=== PATIENT | male | born 1935 | race Caucasian/White ===

== ENCOUNTER 2018-12-23 02:42 | Inpatient (IN) | payer MEDICARE ==
[~2018-12-23] VITALS: Ht 172.7 cm; Wt 61.3 kg
[2018-12-23] MEDS ORDERED: BISO10TA PO (03:09)
[2018-12-23] MEDS ORDERED: LORA-254 PO (03:09)
[2018-12-23] MEDS ORDERED: PANT40TA5 PO (03:09)
[2018-12-23] MEDS ORDERED: HYDR-2765 PO (03:09)
[2018-12-23] MEDS ORDERED: ASPI-630 PO (03:09)
[2018-12-23] MEDS ORDERED: DIPH25CA3 PO (03:09)
[2018-12-23] MEDS ORDERED: ATOR40TA59 PO (03:09)
[2018-12-23] MEDS ORDERED: LISI30TA4 PO (03:09)
[2018-12-23] MEDS ORDERED: ESCITALOPRAM OX20 MG PO (03:09)
[2018-12-23] MEDS ORDERED: METHYL SALICYLATE/MENTHOL TOPICAL OINTMENT 29GM TUBE. TP PRN (05:30)
[2018-12-23] MEDS ORDERED: MAGNESIUM HYDROXIDE 2,400 MG/30 ML ORAL.SUSP. PO PRN (05:30)
[2018-12-23] MEDS ORDERED: MAG HYDROX/AL HYDROX/SIMETH 30 ML ORAL.SUSP PO PRN (05:30)
[2018-12-23 06:19] VITALS: BP 188/82
[2018-12-23] MEDS: ASPIRIN 81 MG TAB.CHEW PO SCH (07:40)
[2018-12-23] MEDS: ATENOLOL 50 MG TABLET PO SCH (07:41)
[2018-12-23] MEDS: PANTOPRAZOLE 40 MG TABLET. PO SCH (07:41)
[2018-12-23] MEDS: CITALOPRAM 20 MG TABLET. PO SCH (07:41)
[2018-12-23] MEDS ORDERED: LISINOPRIL 10 MG TABLET PO SCH (09:00)
[2018-12-23 09:44] LABS: BASO # 0.1 x10^3/uL (0.0-0.2); BASO % 2 % (0-3); EOS # 0.3 x10^3/uL (0.0-0.7); EOS % 4 % (0-3); HEMATOCRIT 44.6 % (39.0-53.0); LYMPH % 18 % (24-48); MEAN CORPUSCULAR HEMOGLOBIN 33 pg (25-35); MEAN CORPUSCULAR HGB CONC 34 g/dL (31-37); MEAN CORPUSCULAR VOLUME 98 fL (79-100); MONO # 0.7 x10^3/uL (0.0-1.1); MONO % 12 % (0-9); NEUT # 3.7 x10^3uL (1.8-7.7); NEUT % 64 % (31-73); PLATELET COUNT 218 x10^3/uL (140-400); RED BLOOD COUNT 4.57 x10^6/uL (4.30-5.70); RED CELL DISTRIBUTION WIDTH 12.9 % (11.5-14.5); WHITE BLOOD COUNT 5.8 x10^3/uL (4.0-11.0)
[2018-12-23 09:51] LABS: ALBUMIN 3.9 g/dL (3.4-5.0); ALBUMIN/GLOBULIN RATIO 1.3 (1.0-1.7); CALCIUM 9.2 mg/dL (8.5-10.1); CREATININE 0.8 mg/dL (0.7-1.3); MAGNESIUM 2.1 mg/dL (1.8-2.4); POTASSIUM 3.7 mmol/L (3.5-5.1); TOTAL BILIRUBIN 0.8 mg/dL (0.2-1.0)
[2018-12-23 15:51] VITALS: BP 107/64
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
[2018-12-23 19:37] LABS: THYROID STIM HORMONE (TSH) 1.432 uIU/mL (0.358-3.740)
[2018-12-23 20:09] LABS: HEMOGLOBIN A1C 5.3 % (4.8-5.6)
[2018-12-23 20:17] VITALS: BP 173/76
[2018-12-23] MEDS: ATORVASTATIN CALCIUM 20 MG TABLET PO SCH (20:54)
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
[2018-12-23] MEDS ORDERED: HALOPERIDOL PO SCH (21:00)
[2018-12-23] MEDS ORDERED: HALOPERIDOL 2 MG TABLET PO SCH (21:00)
[2018-12-23] MEDS ORDERED: HALOPERIDOL 0.5 MG TABLET PO SCH (21:00)
--- NOTE | 2018-12-23 22:19 | PDOC ---
Exam Note: Michael Note: Please also refer to the separate dictated note~for this date of service dictated separately.~Patient seen individually. Discussed the patient with Nursing staff reviewed the chart.~Reviewed interim history and current functioning. Reviewed vital signs,~Labs/ Radiology~and current medications noted below. Continue current treatment with the changes noted in the dictated addendum note Assessment: Vital Signs: Vital Signs Date Time Temp Pulse Resp B/P (MAP) Pulse Ox O2 Delivery O2 Flow Rate FiO2 12/23/18 20:54 73 173/76 12/23/18 20:17 20 95 12/23/18 15:51 98.6 12/23/18 06:19 Room Air I&O Intake and Output 12/23/18 07:01 Intake Total 0 ml Balance 0 ml Intake Oral 0 ml Labs: Laboratory Tests Test 12/23/18 09:13 White Blood Count 5.8 x10^3/uL (4.0-11.0) Red Blood Count 4.57 x10^6/uL (4.30-5.70) Hemoglobin 15.0 g/dL (13.0-17.5) Hematocrit 44.6 % (39.0-53.0) Mean Corpuscular Volume 98 fL (79-100) Mean Corpuscular Hemoglobin 33 pg (25-35) Mean Corpuscular Hemoglobin Concent 34 g/dL (31-37) Red Cell Distribution Width 12.9 % (11.5-14.5) Platelet Count 218 x10^3/uL (140-400) Neutrophils (%) (Auto) 64 % (31-73) Lymphocytes (%) (Auto) 18 % (24-48) L Monocytes (%) (Auto) 12 % (0-9) H Eosinophils (%) (Auto) 4 % (0-3) H Basophils (%) (Auto) 2 % (0-3) Neutrophils # (Auto) 3.7 x10^3uL (1.8-7.7) Lymphocytes # (Auto) 1.0 x10^3/uL (1.0-4.8) Monocytes # (Auto) 0.7 x10^3/uL (0.0-1.1) Eosinophils # (Auto) 0.3 x10^3/uL (0.0-0.7) Basophils # (Auto) 0.1 x10^3/uL (0.0-0.2) Sodium Level 140 mmol/L (136-145) Potassium Level 3.7 mmol/L (3.5-5.1) Chloride Level 101 mmol/L (98-107) Carbon Dioxide Level 30 mmol/L (21-32) Anion Gap 9 (6-14) Blood Urea Nitrogen 21 mg/dL (8-26) Creatinine 0.8 mg/dL (0.7-1.3) Estimated GFR (Cockcroft-Gault) 93.0 BUN/Creatinine Ratio 26 (6-20) H Glucose Level 123 mg/dL (70-99) H Hemoglobin A1c 5.3 % (4.8-5.6) Calcium Level 9.2 mg/dL (8.5-10.1) Magnesium Level 2.1 mg/dL (1.8-2.4) Iron Level 77 ug/dL (65-175) Total Iron Binding Capacity 276 ug/dL (250-450) Iron Saturation 28 % (15-34) Total Bilirubin 0.8 mg/dL (0.2-1.0) Aspartate Amino Transferase (AST) 50 U/L (15-37) H Alanine Aminotransferase (ALT) 27 U/L (16-63) Alkaline Phosphatase 61 U/L (46-116) Total Protein 7.0 g/dL (6.4-8.2) Albumin 3.9 g/dL (3.4-5.0) Albumin/Globulin Ratio 1.3 (1.0-1.7) Triglycerides Level 133 mg/dL (0-150) Cholesterol Level 143 mg/dL (0-200) LDL Cholesterol, Calculated 77 mg/dL (0-100) VLDL Cholesterol, Calculated 26 mg/dL (0-40) Non-HDL Cholesterol Calculated 103 mg/dL (0-129) HDL Cholesterol 40 mg/dL (40-60) Cholesterol/HDL Ratio 3.0 Thyroid Stimulating Hormone (TSH) 1.432 uIU/mL (0.358-3.740) Current Medications: Meds: Current Medications Acetaminophen (Tylenol) 650 mg PRN Q6HRS PRN PO PAIN / TEMP; Start 12/23/18 at 05:30 Multi-Ingredient Ointment (Analgesic [place]) 1 oralia PRN QID PRN TP MUSCLE PAIN; Start 12/23/18 at 05:30 Al Hydroxide/Mg Hydroxide (Mylanta Plus Xs) 15 ml PRN AFTMEALHC PRN PO DYSPEPSIA; Start 12/23/18 at 05:30 Magnesium Hydroxide (Milk Of Magnesia) 2,400 mg PRN QHS PRN PO CONSTIPATION; Start 12/23/18 at 05:30 Diphenhydramine HCl (Benadryl) 25 mg PRN QHS PRN PO INSOMNIA; Start 12/23/18 at 05:30 Lorazepam (Ativan) 1 mg PRN TID PRN PO ANXIETY / AGITATION; Start 12/23/18 at 05 :30 Citalopram Hydrobromide (CeleXA) 40 mg DAILY PO Last administered on 12/23/18 07:41; Start 12/23/18 at 09:00 Acetaminophen/ Hydrocodone Bitart (Lortab 7.5/325) 1 tab PRN QID PRN PO PAIN; Start 12/23/18 at 05:30 Aspirin (Children'S Aspirin) 81 mg DAILYWBKFT PO Last administered on 12/23/18at 07:40; Start 12/23/18 at 08:00 Atorvastatin Calcium (Lipitor) 40 mg QHS PO Last administered on 12/23/18 20:54 ; Start 12/23/18 at 21:00 Atenolol (Tenormin) 100 mg DAILY PO Last administered on 12/23/18 07:41; Start 12/23/18 at 09:00 Lisinopril (Prinivil) 30 mg DAILY PO Last administered on 12/23/18 07:40; Start 12/23/18 at 09:00; Stop 12/23/18 at 13:46; Status DC Pantoprazole Sodium (Protonix) 40 mg DAILYAC PO Last administered on 12/23/18 07:41; Start 12/23/18 at 07:30 Olanzapine (ZyPREXA ZYDIS) 2.5 mg PRN Q2HR PRN PO PSYCHOSIS Last administered on 12/23/18 06:34; Start 12/23/18 at 05:30 Lisinopril (Prinivil) 40 mg DAILY PO ; Start 12/24/18 at 09:00 Nifedipine (Procardia Xl) 30 mg BID PO Last administered on 12/23/18at 20:54; Start 12/23/18 at 21:00 Haloperidol (Haldol) 2 mg QHS PO ; Start 12/23/18 at 21:00; Stop 12/23/18 at 21:00 ; Status DC Haloperidol (Haldol) 2 mg QHS PO ; Start 12/23/18 at 21:00; Stop 12/23/18 at 21:00 ; Status DC Haloperidol Lactate (HALDOL 0.5mg ORAL CONC) 2 mg QHS PO Last administered on at 20:54; Start 12/23/18 at 21:00 Active Scripts Active Reported Pantoprazole Sodium 40 Mg Tablet.dr 40 Mg PO DAILY Ativan (Lorazepam) 1 Mg Tablet 1 Mg PO PRN TID PRN Lisinopril 30 Mg Tablet 30 Mg PO DAILY Escitalopram Oxalate 20 Mg Tablet 20 Mg PO DAILY Diphenhydramine Hcl 25 Mg Capsule 25 Mg PO HS PRN Bisoprolol Fumarate 10 Mg Tablet 10 Mg PO DAILY Atorvastatin Calcium 40 Mg Tablet 40 Mg PO DAILY Aspirin 81 Mg Tab.chew 81 Mg PO DAILY Hydrocodone-Apap 7.5-325 (Hydrocodone Bit/Acetaminophen) 1 Each Tablet 1 Tab PO PRN QID PRN I have reviewed the current psychotropics carefully including drug interactions. Risk benefit ratio favors no change other than as noted in my dictated progress note. Diagnosis: Problems: (1) Anxiety disorder (2) Alcoholic psychosis (3) Psychosis, atypical (4) Psychotic depression KATIE MOTA MD Dec 23, 2018 22:19
[2018-12-23] MEDS: LORazepam 1 MG TABLET PO PRN (23:34)
[2018-12-24 05:58] VITALS: BP 147/72
[2018-12-24 07:09] LABS: THYROXINE 6.5 ug/dL (4.5-12.0)
[2018-12-24] MEDS: ASPIRIN 81 MG TAB.CHEW PO SCH (07:53)
[2018-12-24] MEDS: CITALOPRAM 20 MG TABLET. PO SCH (07:53)
[2018-12-24] MEDS: ATENOLOL 50 MG TABLET PO SCH (07:54)
[2018-12-24] MEDS: PANTOPRAZOLE 40 MG TABLET. PO SCH (07:54)
[2018-12-24] MEDS: LISINOPRIL 20 MG TABLET PO SCH (07:56)
[2018-12-24 15:56] VITALS: BP 128/75
[2018-12-24] MEDS: ATORVASTATIN CALCIUM 20 MG TABLET PO SCH (20:28)
[2018-12-24] MEDS: HALOPERIDOL PO SCH (20:32)
--- NOTE | 2018-12-24 22:21 | PDOC ---
Exam Note: Michael Note: Please also refer to the separate dictated note~for this date of service dictated separately.~Patient seen individually. Discussed the patient with Nursing staff reviewed the chart.~Reviewed interim history and current functioning. Reviewed vital signs,~Labs/ Radiology~and current medications noted below. Continue current treatment with the changes noted in the dictated addendum note Assessment: Vital Signs: Vital Signs Date Time Temp Pulse Resp B/P (MAP) Pulse Ox O2 Delivery O2 Flow Rate FiO2 12/24/18 20:28 71 128/75 12/24/18 15:56 98.1 20 94 Room Air I&O Intake and Output 12/24/18 07:01 Intake Total 1080 ml Balance 1080 ml Intake Oral 1080 ml Current Medications: Meds: Current Medications Acetaminophen (Tylenol) 650 mg PRN Q6HRS PRN PO PAIN / TEMP; Start 12/23/18 at 05:30 Multi-Ingredient Ointment (Analgesic [place]) 1 oralia PRN QID PRN TP MUSCLE PAIN; Start 12/23/18 at 05:30 Al Hydroxide/Mg Hydroxide (Mylanta Plus Xs) 15 ml PRN AFTMEALHC PRN PO DYSPEPSIA; Start 12/23/18 at 05:30 Magnesium Hydroxide (Milk Of Magnesia) 2,400 mg PRN QHS PRN PO CONSTIPATION; Start 12/23/18 at 05:30 Diphenhydramine HCl (Benadryl) 25 mg PRN QHS PRN PO INSOMNIA; Start 12/23/18 at 05:30 Lorazepam (Ativan) 1 mg PRN TID PRN PO ANXIETY / AGITATION Last administered on 12/23/18at 23:34; Start 12/23/18 at 05:30 Citalopram Hydrobromide (CeleXA) 40 mg DAILY PO Last administered on 12/24/18at 07:53; Start 12/23/18 at 09:00; Stop 12/24/18 at 19:07; Status DC Acetaminophen/ Hydrocodone Bitart (Lortab 7.5/325) 1 tab PRN QID PRN PO PAIN; Start 12/23/18 at 05:30 Aspirin (Children'S Aspirin) 81 mg DAILYWBKFT PO Last administered on 12/24/18at 07:53; Start 12/23/18 at 08:00 Atorvastatin Calcium (Lipitor) 40 mg QHS PO Last administered on 12/24/18 20:28 ; Start 12/23/18 at 21:00 Atenolol (Tenormin) 100 mg DAILY PO Last administered on 12/24/18 07:54; Start 12/23/18 at 09:00 Lisinopril (Prinivil) 30 mg DAILY PO Last administered on 12/23/18 07:40; Start 12/23/18 at 09:00; Stop 12/23/18 at 13:46; Status DC Pantoprazole Sodium (Protonix) 40 mg DAILYAC PO Last administered on 12/24/18 07:54; Start 12/23/18 at 07:30 Olanzapine (ZyPREXA ZYDIS) 2.5 mg PRN Q2HR PRN PO PSYCHOSIS Last administered on 12/23/18 06:34; Start 12/23/18 at 05:30 Lisinopril (Prinivil) 40 mg DAILY PO Last administered on 12/24/18 07:56; Start 12/24/18 at 09:00 Nifedipine (Procardia Xl) 30 mg BID PO Last administered on 12/24/18 20:28; Start 12/23/18 at 21:00 Haloperidol (Haldol) 2 mg QHS PO ; Start 12/23/18 at 21:00; Stop 12/23/18 at 21:00 ; Status DC Haloperidol (Haldol) 2 mg QHS PO ; Start 12/23/18 at 21:00; Stop 12/23/18 at 21:00 ; Status DC Haloperidol Lactate (HALDOL 0.5mg ORAL CONC) 2 mg QHS PO Last administered on 20:54; Start 12/23/18 at 21:00; Stop 12/24/18 at 16:22; Status DC Haloperidol Lactate (HALDOL 0.5mg ORAL CONC) 2 mg QHS PO Last administered on 20:32; Start 12/24/18 at 21:00 Duloxetine HCl (Cymbalta) 30 mg DAILY PO ; Start 12/25/18 at 09:00 Active Scripts Active Reported Pantoprazole Sodium 40 Mg Tablet.dr 40 Mg PO DAILY Ativan (Lorazepam) 1 Mg Tablet 1 Mg PO PRN TID PRN Lisinopril 30 Mg Tablet 30 Mg PO DAILY Escitalopram Oxalate 20 Mg Tablet 20 Mg PO DAILY Diphenhydramine Hcl 25 Mg Capsule 25 Mg PO HS PRN Bisoprolol Fumarate 10 Mg Tablet 10 Mg PO DAILY Atorvastatin Calcium 40 Mg Tablet 40 Mg PO DAILY Aspirin 81 Mg Tab.chew 81 Mg PO DAILY Hydrocodone-Apap 7.5-325 (Hydrocodone Bit/Acetaminophen) 1 Each Tablet 1 Tab PO PRN QID PRN I have reviewed the current psychotropics carefully including drug interactions. Risk benefit ratio favors no change other than as noted in my dictated progress note. Diagnosis: Problems: (1) Anxiety disorder (2) Alcoholic psychosis (3) Psychosis, atypical (4) Psychotic depression KATIE MOTA MD Dec 24, 2018 22:21
[2018-12-24] MEDS: LORazepam 1 MG TABLET PO PRN (23:47)
[2018-12-25 06:04] VITALS: BP 132/68
[2018-12-25] MEDS: LISINOPRIL 20 MG TABLET PO SCH (08:42)
[2018-12-25] MEDS: ASPIRIN 81 MG TAB.CHEW PO SCH (08:42)
[2018-12-25] MEDS: PANTOPRAZOLE 40 MG TABLET. PO SCH (08:42)
[2018-12-25] MEDS: ATENOLOL 50 MG TABLET PO SCH (08:43)
[2018-12-25] MEDS: DULoxetine HCL 30 MG CAPSULE.DR PO SCH (08:44)
[2018-12-25 16:08] VITALS: BP 143/73
--- NOTE | 2018-12-25 19:57 | PN ---
DATE: 12/23/2018 PSYCHIATRIC PROGRESS NOTE This late entry 12/23/2018 covers elements, not covered in my initial note. SUBJECTIVE: I met with the patient in the evening. Per nursing report, the patient is alert, oriented. He has been having intermittent visual hallucinations of seeing "green men." CT head at [facility] was noncontributory. KATIE MOTA MD DR: SPRING/pb JOB#: [id number] / [id number]
[2018-12-25] MEDS: ATORVASTATIN CALCIUM 20 MG TABLET PO SCH (20:12)
[2018-12-25] MEDS: HALOPERIDOL PO SCH (20:18)
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
--- NOTE | 2018-12-25 22:28 | PDOC ---
Exam Note: Michael Note: Please also refer to the separate dictated note~for this date of service dictated separately.~Patient seen individually. Discussed the patient with Nursing staff reviewed the chart.~Reviewed interim history and current functioning. Reviewed vital signs,~Labs/ Radiology~and current medications noted below. Continue current treatment with the changes noted in the dictated addendum note Assessment: Vital Signs: Vital Signs Date Time Temp Pulse Resp B/P (MAP) Pulse Ox O2 Delivery O2 Flow Rate FiO2 12/25/18 20:12 66 143/73 12/25/18 16:08 98.2 18 95 12/24/18 15:56 Room Air I&O Intake and Output 12/25/18 07:01 Intake Total 840 ml Balance 840 ml Intake Oral 840 ml Current Medications: Meds: Current Medications Acetaminophen (Tylenol) 650 mg PRN Q6HRS PRN PO PAIN / TEMP; Start 12/23/18 at 05:30 Multi-Ingredient Ointment (Analgesic [place]) 1 oralia PRN QID PRN TP MUSCLE PAIN; Start 12/23/18 at 05:30 Al Hydroxide/Mg Hydroxide (Mylanta Plus Xs) 15 ml PRN AFTMEALHC PRN PO DYSPEPSIA; Start 12/23/18 at 05:30 Magnesium Hydroxide (Milk Of Magnesia) 2,400 mg PRN QHS PRN PO CONSTIPATION; Start 12/23/18 at 05:30 Diphenhydramine HCl (Benadryl) 25 mg PRN QHS PRN PO INSOMNIA; Start 12/23/18 at 05:30 Lorazepam (Ativan) 1 mg PRN TID PRN PO ANXIETY / AGITATION Last administered on 12/24/18at 23:47; Start 12/23/18 at 05:30 Citalopram Hydrobromide (CeleXA) 40 mg DAILY PO Last administered on 12/24/18at 07:53; Start 12/23/18 at 09:00; Stop 12/24/18 at 19:07; Status DC Acetaminophen/ Hydrocodone Bitart (Lortab 7.5/325) 1 tab PRN QID PRN PO PAIN; Start 12/23/18 at 05:30 Aspirin (Children'S Aspirin) 81 mg DAILYWBKFT PO Last administered on 12/25/18at 08:42; Start 12/23/18 at 08:00 Atorvastatin Calcium (Lipitor) 40 mg QHS PO Last administered on 12/25/18 20:12 ; Start 12/23/18 at 21:00 Atenolol (Tenormin) 100 mg DAILY PO Last administered on 12/25/18 08:43; Start 12/23/18 at 09:00 Lisinopril (Prinivil) 30 mg DAILY PO Last administered on 12/23/18 07:40; Start 12/23/18 at 09:00; Stop 12/23/18 at 13:46; Status DC Pantoprazole Sodium (Protonix) 40 mg DAILYAC PO Last administered on 12/25/18 08:42; Start 12/23/18 at 07:30 Olanzapine (ZyPREXA ZYDIS) 2.5 mg PRN Q2HR PRN PO PSYCHOSIS Last administered on 12/23/18 06:34; Start 12/23/18 at 05:30 Lisinopril (Prinivil) 40 mg DAILY PO Last administered on 12/25/18 08:42; Start 12/24/18 at 09:00 Nifedipine (Procardia Xl) 30 mg BID PO Last administered on 12/25/18 20:12; Start 12/23/18 at 21:00 Haloperidol (Haldol) 2 mg QHS PO ; Start 12/23/18 at 21:00; Stop 12/23/18 at 21:00 ; Status DC Haloperidol (Haldol) 2 mg QHS PO ; Start 12/23/18 at 21:00; Stop 12/23/18 at 21:00 ; Status DC Haloperidol Lactate (HALDOL 0.5mg ORAL CONC) 2 mg QHS PO Last administered on 20:54; Start 12/23/18 at 21:00; Stop 12/24/18 at 16:22; Status DC Haloperidol Lactate (HALDOL 0.5mg ORAL CONC) 2 mg QHS PO Last administered on 20:18; Start 12/24/18 at 21:00 Duloxetine HCl (Cymbalta) 30 mg DAILY PO Last administered on 12/25/18 08:44; Start 12/25/18 at 09:00 Trazodone HCl (Desyrel) 50 mg PRN QHS PRN PO INSOMNIA, MAY REPEAT X1; Start 12/25/18 at 16:30 Active Scripts Active Reported Pantoprazole Sodium 40 Mg Tablet.dr 40 Mg PO DAILY Ativan (Lorazepam) 1 Mg Tablet 1 Mg PO PRN TID PRN Lisinopril 30 Mg Tablet 30 Mg PO DAILY Escitalopram Oxalate 20 Mg Tablet 20 Mg PO DAILY Diphenhydramine Hcl 25 Mg Capsule 25 Mg PO HS PRN Bisoprolol Fumarate 10 Mg Tablet 10 Mg PO DAILY Atorvastatin Calcium 40 Mg Tablet 40 Mg PO DAILY Aspirin 81 Mg Tab.chew 81 Mg PO DAILY Hydrocodone-Apap 7.5-325 (Hydrocodone Bit/Acetaminophen) 1 Each Tablet 1 Tab PO PRN QID PRN I have reviewed the current psychotropics carefully including drug interactions. Risk benefit ratio favors no change other than as noted in my dictated progress note. Diagnosis: Problems: (1) Anxiety disorder (2) Alcoholic psychosis (3) Psychosis, atypical (4) Psychotic depression KATIE MOTA MD Dec 25, 2018 22:28
[2018-12-26 06:10] VITALS: BP 127/68
--- NOTE | 2018-12-26 08:19 | RAD ---
Examination: RENAL COMPLETE BILATERAL, RENAL BILAT RENAL DUPLEX CO History: MARKEDLY ELEVATED BP Comparison/Correlation: None Findings: Bilateral renal ultrasound exam was performed. Color and spectral Doppler performed. Right main renal arterial velocities range from 61 cm/s proximally to 54 cm/s distally and this represents resistive index of up to 0.76. Left main renal artery proximally has a velocity of 59 cm/s and distally has increased velocity of 43 cm/s. This corresponds to resistive index of up to 0.74 distally. Abdominal aortic velocity is 49 cm/s. Right and left main renal artery to aortic ratio are both 1.2 which is within normal range. Right kidney measures 8.5 cm and left kidney measures 8.7 cm in length. No hydronephrosis. Left renal cyst measuring 2.1 cm diameter is present. Urinary bladder is unremarkable. Impression: No findings of hemodynamic renal arterial stenosis. Unremarkable exam. Electronically signed by: Aaron Barrientos MD (12/26/2018 8:15 AM) [facility]
[2018-12-26] MEDS: DULoxetine HCL 30 MG CAPSULE.DR PO SCH (09:23)
[2018-12-26] MEDS: ASPIRIN 81 MG TAB.CHEW PO SCH (09:24)
[2018-12-26] MEDS: LISINOPRIL 20 MG TABLET PO SCH (09:24)
[2018-12-26] MEDS: PANTOPRAZOLE 40 MG TABLET. PO SCH (09:24)
[2018-12-26] MEDS: ATENOLOL 50 MG TABLET PO SCH (09:48)
[2018-12-26 16:52] VITALS: BP 145/70
[2018-12-26] MEDS: ATORVASTATIN CALCIUM 20 MG TABLET PO SCH (20:28)
[2018-12-26] MEDS: HALOPERIDOL PO SCH (20:31)
[2018-12-26] MEDS: BENZOCAINE/MENTHOL LOZNGE 18'S BOX. PO PRN (21:39)
[2018-12-26] MEDS: diphenhydrAMINE HCL 25 MG CAPSULE PO PRN (21:39)
--- NOTE | 2018-12-26 22:38 | PDOC ---
Exam Note: Michael Note: Please also refer to the separate dictated note~for this date of service dictated separately.~Patient seen individually. Discussed the patient with Nursing staff reviewed the chart.~Reviewed interim history and current functioning. Reviewed vital signs,~Labs/ Radiology~and current medications noted below. Continue current treatment with the changes noted in the dictated addendum note Assessment: Vital Signs: Vital Signs Date Time Temp Pulse Resp B/P (MAP) Pulse Ox O2 Delivery O2 Flow Rate FiO2 12/26/18 20:31 79 145/70 12/26/18 16:52 98.7 18 97 12/24/18 15:56 Room Air I&O Intake and Output 12/26/18 07:01 Intake Total 480 ml Balance 480 ml Intake Oral 480 ml # Bowel Movements 1 Current Medications: Meds: Current Medications Acetaminophen (Tylenol) 650 mg PRN Q6HRS PRN PO PAIN / TEMP; Start 12/23/18 at 05:30 Multi-Ingredient Ointment (Analgesic [place]) 1 oralia PRN QID PRN TP MUSCLE PAIN; Start 12/23/18 at 05:30 Al Hydroxide/Mg Hydroxide (Mylanta Plus Xs) 15 ml PRN AFTMEALHC PRN PO DYSPEPSIA; Start 12/23/18 at 05:30 Magnesium Hydroxide (Milk Of Magnesia) 2,400 mg PRN QHS PRN PO CONSTIPATION; Start 12/23/18 at 05:30 Diphenhydramine HCl (Benadryl) 25 mg PRN QHS PRN PO INSOMNIA Last administered on 12/26/18at 21:39; Start 12/23/18 at 05:30 Lorazepam (Ativan) 1 mg PRN TID PRN PO ANXIETY / AGITATION Last administered on 12/24/18at 23:47; Start 12/23/18 at 05:30 Citalopram Hydrobromide (CeleXA) 40 mg DAILY PO Last administered on 12/24/18at 07:53; Start 12/23/18 at 09:00; Stop 12/24/18 at 19:07; Status DC Acetaminophen/ Hydrocodone Bitart (Lortab 7.5/325) 1 tab PRN QID PRN PO PAIN; Start 12/23/18 at 05:30 Aspirin (Children'S Aspirin) 81 mg DAILYWBKFT PO Last administered on 12/26/18 09:24; Start 12/23/18 at 08:00 Atorvastatin Calcium (Lipitor) 40 mg QHS PO Last administered on 12/26/18 20:28 ; Start 12/23/18 at 21:00 Atenolol (Tenormin) 100 mg DAILY PO Last administered on 12/26/18 09:48; Start 12/23/18 at 09:00 Lisinopril (Prinivil) 30 mg DAILY PO Last administered on 12/23/18 07:40; Start 12/23/18 at 09:00; Stop 12/23/18 at 13:46; Status DC Pantoprazole Sodium (Protonix) 40 mg DAILYAC PO Last administered on 12/26/18 09:24; Start 12/23/18 at 07:30 Olanzapine (ZyPREXA ZYDIS) 2.5 mg PRN Q2HR PRN PO PSYCHOSIS Last administered on 12/23/18 06:34; Start 12/23/18 at 05:30 Lisinopril (Prinivil) 40 mg DAILY PO Last administered on 12/26/18 09:24; Start 12/24/18 at 09:00 Nifedipine (Procardia Xl) 30 mg BID PO Last administered on 12/26/18 20:31; Start 12/23/18 at 21:00 Haloperidol (Haldol) 2 mg QHS PO ; Start 12/23/18 at 21:00; Stop 12/23/18 at 21:00 ; Status DC Haloperidol (Haldol) 2 mg QHS PO ; Start 12/23/18 at 21:00; Stop 12/23/18 at 21:00 ; Status DC Haloperidol Lactate (HALDOL 0.5mg ORAL CONC) 2 mg QHS PO Last administered on 20:54; Start 12/23/18 at 21:00; Stop 12/24/18 at 16:22; Status DC Haloperidol Lactate (HALDOL 0.5mg ORAL CONC) 2 mg QHS PO Last administered on 20:31; Start 12/24/18 at 21:00 Duloxetine HCl (Cymbalta) 30 mg DAILY PO Last administered on 12/26/18 09:23; Start 12/25/18 at 09:00 Trazodone HCl (Desyrel) 50 mg PRN QHS PRN PO INSOMNIA, MAY REPEAT X1; Start 12/25/18 at 16:30 Throat Lozenges (Cepacol Sore Throat Lozenge) 1 justa PRN Q2HR PRN PO SORE THROAT Last administered on 12/26/18at 21:39; Start 12/26/18 at 20:45 Active Scripts Active Reported Pantoprazole Sodium 40 Mg Tablet.dr 40 Mg PO DAILY Ativan (Lorazepam) 1 Mg Tablet 1 Mg PO PRN TID PRN Lisinopril 30 Mg Tablet 30 Mg PO DAILY Escitalopram Oxalate 20 Mg Tablet 20 Mg PO DAILY Diphenhydramine Hcl 25 Mg Capsule 25 Mg PO HS PRN Bisoprolol Fumarate 10 Mg Tablet 10 Mg PO DAILY Atorvastatin Calcium 40 Mg Tablet 40 Mg PO DAILY Aspirin 81 Mg Tab.chew 81 Mg PO DAILY Hydrocodone-Apap 7.5-325 (Hydrocodone Bit/Acetaminophen) 1 Each Tablet 1 Tab PO PRN QID PRN I have reviewed the current psychotropics carefully including drug interactions. Risk benefit ratio favors no change other than as noted in my dictated progress note. Diagnosis: Problems: (1) Anxiety disorder (2) Alcoholic psychosis (3) Psychosis, atypical (4) Psychotic depression KATIE MOTA MD Dec 26, 2018 22:38
--- NOTE | 2018-12-26 23:27 | PN ---
DATE: 12/25/2018 PSYCHIATRIC PROGRESS NOTE This late entry 12/25/2018 covers elements not covered in my initial note. SUBJECTIVE: I met with the patient in the evening. The patient slept 6-1/4 hours previous night. The patient n.p.o. from bedtime secondary to renal ultrasound and ultimately it was obtained in the evening, unremarkable for renal artery stenosis. Family visited. REVIEW OF SYSTEMS: No CV, , pulmonary, eye system symptoms on review. Does have some problem swallowing. MENTAL STATUS EXAM: Oriented to himself and situation. Speech is coherent, abstraction fair, computation impaired, language function intact. Mood and affect, impaired lability. LABORATORY DATA: Reviewed. IMPRESSION: Unchanged from initial note. PLAN: Start trazodone 50 mg at bedtime p.r.n., march repeat x 1 for insomnia. Rest unchanged. MAN Sheng MOTA MD DR: SPRING/pb JOB#: [id number] / [id number]
[2018-12-27 05:46] VITALS: BP 117/62
[2018-12-27] MEDS: LISINOPRIL 20 MG TABLET PO SCH (08:18)
[2018-12-27] MEDS: DULoxetine HCL 30 MG CAPSULE.DR PO SCH (08:18)
[2018-12-27] MEDS: ASPIRIN 81 MG TAB.CHEW PO SCH (08:19)
[2018-12-27] MEDS: ATENOLOL 50 MG TABLET PO SCH (08:19)
[2018-12-27] MEDS: PANTOPRAZOLE 40 MG TABLET. PO SCH (08:19)
[2018-12-27 15:56] VITALS: BP 128/75
--- NOTE | 2018-12-27 19:56 | PN ---
DATE: 12/26/2018 PSYCHIATRIC PROGRESS NOTE This late entry 12/26/2017 covers elements not covered in my initial note. SUBJECTIVE: I met with the patient in the evening. The patient slept 6-1/2 hours previous night. The patient had no hallucinations, but somewhat anxious previous night. Renal ultrasound is negative for renal artery stenosis. We will defer to Dr. Gutierrez. REVIEW OF SYSTEMS: No CV, , pulmonary, eye, ENT system symptoms on review. MENTAL STATUS EXAM: The patient is reasonably oriented. Speech has some latency, coherent. Abstraction fair, computation impaired, language function intact, attention span short. Mood and affect somewhat withdrawn, but no hallucinations, suicidal or homicidal ideation. LABORATORY DATA: Reviewed. IMPRESSION: Unchanged from initial note. PLAN: No change from initial note. MAN Sheng MOTA MD DR: SPRING/pb JOB#: [id number] / [id number]
[2018-12-27] MEDS: ATORVASTATIN CALCIUM 20 MG TABLET PO SCH (20:14)
[2018-12-27] MEDS: HALOPERIDOL PO SCH (20:16)
--- NOTE | 2018-12-27 22:25 | PDOC ---
Exam Note: Michael Note: Please also refer to the separate dictated note~for this date of service dictated separately.~Patient seen individually. Discussed the patient with Nursing staff reviewed the chart.~Reviewed interim history and current functioning. Reviewed vital signs,~Labs/ Radiology~and current medications noted below. Continue current treatment with the changes noted in the dictated addendum note Assessment: Vital Signs: Vital Signs Date Time Temp Pulse Resp B/P (MAP) Pulse Ox O2 Delivery O2 Flow Rate FiO2 12/27/18 20:15 74 128/75 12/27/18 15:56 98.1 18 96 12/24/18 15:56 Room Air I&O Intake and Output 12/27/18 07:01 Intake Total 720 ml Balance 720 ml Intake Oral 720 ml # Voids 1 # Bowel Movements 1 Current Medications: Meds: Current Medications Acetaminophen (Tylenol) 650 mg PRN Q6HRS PRN PO PAIN / TEMP; Start 12/23/18 at 05:30 Multi-Ingredient Ointment (Analgesic [place]) 1 oralia PRN QID PRN TP MUSCLE PAIN; Start 12/23/18 at 05:30 Al Hydroxide/Mg Hydroxide (Mylanta Plus Xs) 15 ml PRN AFTMEALHC PRN PO DYSPEPSIA; Start 12/23/18 at 05:30 Magnesium Hydroxide (Milk Of Magnesia) 2,400 mg PRN QHS PRN PO CONSTIPATION; Start 12/23/18 at 05:30 Diphenhydramine HCl (Benadryl) 25 mg PRN QHS PRN PO INSOMNIA Last administered on 12/26/18at 21:39; Start 12/23/18 at 05:30 Lorazepam (Ativan) 1 mg PRN TID PRN PO ANXIETY / AGITATION Last administered on 12/24/18at 23:47; Start 12/23/18 at 05:30 Citalopram Hydrobromide (CeleXA) 40 mg DAILY PO Last administered on 12/24/18at 07:53; Start 12/23/18 at 09:00; Stop 12/24/18 at 19:07; Status DC Acetaminophen/ Hydrocodone Bitart (Lortab 7.5/325) 1 tab PRN QID PRN PO PAIN; Start 12/23/18 at 05:30 Aspirin (Children'S Aspirin) 81 mg DAILYWBKFT PO Last administered on 12/27/18 08:19; Start 12/23/18 at 08:00 Atorvastatin Calcium (Lipitor) 40 mg QHS PO Last administered on 12/27/18 20:14 ; Start 12/23/18 at 21:00 Atenolol (Tenormin) 100 mg DAILY PO Last administered on 12/27/18 08:19; Start 12/23/18 at 09:00 Lisinopril (Prinivil) 30 mg DAILY PO Last administered on 12/23/18 07:40; Start 12/23/18 at 09:00; Stop 12/23/18 at 13:46; Status DC Pantoprazole Sodium (Protonix) 40 mg DAILYAC PO Last administered on 12/27/18 08:19; Start 12/23/18 at 07:30 Olanzapine (ZyPREXA ZYDIS) 2.5 mg PRN Q2HR PRN PO PSYCHOSIS Last administered on 12/23/18 06:34; Start 12/23/18 at 05:30 Lisinopril (Prinivil) 40 mg DAILY PO Last administered on 12/27/18 08:18; Start 12/24/18 at 09:00 Nifedipine (Procardia Xl) 30 mg BID PO Last administered on 12/27/18 20:15; Start 12/23/18 at 21:00 Haloperidol (Haldol) 2 mg QHS PO ; Start 12/23/18 at 21:00; Stop 12/23/18 at 21:00 ; Status DC Haloperidol (Haldol) 2 mg QHS PO ; Start 12/23/18 at 21:00; Stop 12/23/18 at 21:00 ; Status DC Haloperidol Lactate (HALDOL 0.5mg ORAL CONC) 2 mg QHS PO Last administered on 20:54; Start 12/23/18 at 21:00; Stop 12/24/18 at 16:22; Status DC Haloperidol Lactate (HALDOL 0.5mg ORAL CONC) 2 mg QHS PO Last administered on 20:16; Start 12/24/18 at 21:00 Duloxetine HCl (Cymbalta) 30 mg DAILY PO Last administered on 12/27/18 08:18; Start 12/25/18 at 09:00 Trazodone HCl (Desyrel) 50 mg PRN QHS PRN PO INSOMNIA, MAY REPEAT X1; Start 12/25/18 at 16:30 Throat Lozenges (Cepacol Sore Throat Lozenge) 1 justa PRN Q2HR PRN PO SORE THROAT Last administered on 12/26/18at 21:39; Start 12/26/18 at 20:45 Active Scripts Active Reported Pantoprazole Sodium 40 Mg Tablet.dr 40 Mg PO DAILY Ativan (Lorazepam) 1 Mg Tablet 1 Mg PO PRN TID PRN Lisinopril 30 Mg Tablet 30 Mg PO DAILY Escitalopram Oxalate 20 Mg Tablet 20 Mg PO DAILY Diphenhydramine Hcl 25 Mg Capsule 25 Mg PO HS PRN Bisoprolol Fumarate 10 Mg Tablet 10 Mg PO DAILY Atorvastatin Calcium 40 Mg Tablet 40 Mg PO DAILY Aspirin 81 Mg Tab.chew 81 Mg PO DAILY Hydrocodone-Apap 7.5-325 (Hydrocodone Bit/Acetaminophen) 1 Each Tablet 1 Tab PO PRN QID PRN I have reviewed the current psychotropics carefully including drug interactions. Risk benefit ratio favors no change other than as noted in my dictated progress note. Diagnosis: Problems: (1) Anxiety disorder (2) Alcoholic psychosis (3) Psychosis, atypical (4) Psychotic depression KATIE MOTA MD Dec 27, 2018 22:25
[2018-12-28] MEDS: ACETAMINOPHEN 325 MG TABLET PO PRN ×3 (06:30→20:47)
[2018-12-28 06:32] VITALS: BP 121/64
[2018-12-28] MEDS: ATENOLOL 50 MG TABLET PO SCH (07:56)
[2018-12-28] MEDS: LISINOPRIL 20 MG TABLET PO SCH (07:56)
[2018-12-28] MEDS: ASPIRIN 81 MG TAB.CHEW PO SCH (07:57)
[2018-12-28] MEDS: DULoxetine HCL 30 MG CAPSULE.DR PO SCH (07:57)
[2018-12-28] MEDS: PANTOPRAZOLE 40 MG TABLET. PO SCH (07:58)
[2018-12-28 16:39] VITALS: BP 115/74
[2018-12-28] MEDS: LIDOCAINE (700MG/PATCH) PATCH. TD SCH (17:27)
[2018-12-28] MEDS: PATCH REMOVAL. MC SCH (19:21)
[2018-12-28] MEDS: ATORVASTATIN CALCIUM 20 MG TABLET PO SCH (19:22)
--- NOTE | 2018-12-28 20:19 | PN ---
DATE: 12/27/2018 This late entry for 12/27/2018 covers elements not covered in my initial note. SUBJECTIVE: I met with the patient in the evening and staffed at a treatment team meeting with the entire team and the patient's , Jairon, attended the treatment team meeting. We had a lengthy discussion about the patient's diagnosis, his past history, which the was able to share quite accurately including his past head injuries from working at [facility] [employer] and then when a telephone pole fell on him. shared the patient was taking excessive amounts of Benadryl, hydrocodone and Ativan prior to admission here consequent to his complaints of ongoing insomnia. We discussed his diagnosis, progress, resolution of visual hallucinations. The patient slept 4-3/4 hours previous night. Appetite 85%. REVIEW OF SYSTEMS: No complaints of headache. No CV, , pulmonary, eye system symptoms on review. MENTAL STATUS EXAM: Oriented to himself and situation. Speech has some latency, coherent, met with him at length in his room. Abstraction fair, computation somewhat impaired, language function intact, attention span short. Mood and affect showing improvement. LABORATORY DATA: Reviewed. IMPRESSION: Unchanged from initial note. PLAN: Continue Haldol 2 mg at bedtime. Rest is unchanged from before. MAN Sheng MOTA MD DR: SPRING/pb JOB#: [id number] / [id number]
[2018-12-28] MEDS: HALOPERIDOL 10 MG/5 ML ORAL.CONC. PO SCH (20:38)
[2018-12-28] MEDS: BENZOCAINE/MENTHOL LOZNGE 18'S BOX. PO PRN (20:43)
[2018-12-28] MEDS: diphenhydrAMINE HCL 25 MG CAPSULE PO PRN (20:43)
--- NOTE | 2018-12-28 22:22 | PDOC ---
Exam Note: Michael Note: Please also refer to the separate dictated note~for this date of service dictated separately.~Patient seen individually. Discussed the patient with Nursing staff reviewed the chart.~Reviewed interim history and current functioning. Reviewed vital signs,~Labs/ Radiology~and current medications noted below. Continue current treatment with the changes noted in the dictated addendum note Assessment: Vital Signs: Vital Signs Date Time Temp Pulse Resp B/P (MAP) Pulse Ox O2 Delivery O2 Flow Rate FiO2 12/28/18 19:23 69 115/74 12/28/18 16:39 98.0 16 98 12/24/18 15:56 Room Air I&O Intake and Output 12/28/18 07:01 Intake Total 1320 ml Balance 1320 ml Intake Oral 1320 ml Current Medications: Meds: Current Medications Acetaminophen (Tylenol) 650 mg PRN Q6HRS PRN PO PAIN / TEMP Last administered on 12/28/18 20:47; Start 12/23/18 at 05:30 Multi-Ingredient Ointment (Analgesic [place]) 1 oralia PRN QID PRN TP MUSCLE PAIN Last administered on 12/28/18 06:47; Start 12/23/18 at 05:30 Al Hydroxide/Mg Hydroxide (Mylanta Plus Xs) 15 ml PRN AFTMEALHC PRN PO DYSPEPSIA; Start 12/23/18 at 05:30 Magnesium Hydroxide (Milk Of Magnesia) 2,400 mg PRN QHS PRN PO CONSTIPATION; Start 12/23/18 at 05:30 Diphenhydramine HCl (Benadryl) 25 mg PRN QHS PRN PO INSOMNIA Last administered on 12/28/18 20:43; Start 12/23/18 at 05:30 Lorazepam (Ativan) 1 mg PRN TID PRN PO ANXIETY / AGITATION Last administered on 12/24/18 23:47; Start 12/23/18 at 05:30 Citalopram Hydrobromide (CeleXA) 40 mg DAILY PO Last administered on 12/24/18 07:53; Start 12/23/18 at 09:00; Stop 12/24/18 at 19:07; Status DC Acetaminophen/ Hydrocodone Bitart (Lortab 7.5/325) 1 tab PRN QID PRN PO PAIN; Start 12/23/18 at 05:30 Aspirin (Children'S Aspirin) 81 mg DAILYWBKFT PO Last administered on 12/28/18 07:57; Start 12/23/18 at 08:00 Atorvastatin Calcium (Lipitor) 40 mg QHS PO Last administered on 12/28/18 19:22 ; Start 12/23/18 at 21:00 Atenolol (Tenormin) 100 mg DAILY PO Last administered on 12/28/18 07:56; Start 12/23/18 at 09:00 Lisinopril (Prinivil) 30 mg DAILY PO Last administered on 12/23/18 07:40; Start 12/23/18 at 09:00; Stop 12/23/18 at 13:46; Status DC Pantoprazole Sodium (Protonix) 40 mg DAILYAC PO Last administered on 12/28/18 07:58; Start 12/23/18 at 07:30 Olanzapine (ZyPREXA ZYDIS) 2.5 mg PRN Q2HR PRN PO PSYCHOSIS Last administered on 12/23/18 06:34; Start 12/23/18 at 05:30 Lisinopril (Prinivil) 40 mg DAILY PO Last administered on 12/28/18 07:56; Start 12/24/18 at 09:00 Nifedipine (Procardia Xl) 30 mg BID PO Last administered on 12/28/18 19:23; Start 12/23/18 at 21:00 Haloperidol (Haldol) 2 mg QHS PO ; Start 12/23/18 at 21:00; Stop 12/23/18 at 21:00 ; Status DC Haloperidol (Haldol) 2 mg QHS PO ; Start 12/23/18 at 21:00; Stop 12/23/18 at 21:00 ; Status DC Haloperidol Lactate (HALDOL 0.5mg ORAL CONC) 2 mg QHS PO Last administered on 20:54; Start 12/23/18 at 21:00; Stop 12/24/18 at 16:22; Status DC Haloperidol Lactate (HALDOL 0.5mg ORAL CONC) 2 mg QHS PO Last administered on 20:16; Start 12/24/18 at 21:00; Stop 12/28/18 at 20:36; Status DC Duloxetine HCl (Cymbalta) 30 mg DAILY PO Last administered on 12/28/18 07:57; Start 12/25/18 at 09:00 Trazodone HCl (Desyrel) 50 mg PRN QHS PRN PO INSOMNIA, MAY REPEAT X1; Start 12/25/18 at 16:30 Throat Lozenges (Cepacol Sore Throat Lozenge) 1 justa PRN Q2HR PRN PO SORE THROAT Last administered on 12/28/18 20:43; Start 12/26/18 at 20:45 Lidocaine (Lidoderm) 1 patch DAILY TD Last administered on 12/28/18 17:27; Start 12/28/18 at 15:00 Miscellaneous (Lidoderm Patch Removal) 1 ea QHS MC Last administered on 19:21; Start 12/28/18 at 21:00 Haloperidol Lactate (HALDOL 10mg ORAL CONC) 2 mg QHS PO Last administered on 20:38; Start 12/28/18 at 21:00 Active Scripts Active Reported Pantoprazole Sodium 40 Mg Tablet.dr 40 Mg PO DAILY Ativan (Lorazepam) 1 Mg Tablet 1 Mg PO PRN TID PRN Lisinopril 30 Mg Tablet 30 Mg PO DAILY Escitalopram Oxalate 20 Mg Tablet 20 Mg PO DAILY Diphenhydramine Hcl 25 Mg Capsule 25 Mg PO HS PRN Bisoprolol Fumarate 10 Mg Tablet 10 Mg PO DAILY Atorvastatin Calcium 40 Mg Tablet 40 Mg PO DAILY Aspirin 81 Mg Tab.chew 81 Mg PO DAILY Hydrocodone-Apap 7.5-325 (Hydrocodone Bit/Acetaminophen) 1 Each Tablet 1 Tab PO PRN QID PRN I have reviewed the current psychotropics carefully including drug interactions. Risk benefit ratio favors no change other than as noted in my dictated progress note. Diagnosis: Problems: (1) Anxiety disorder (2) Alcoholic psychosis (3) Psychosis, atypical (4) Psychotic depression KATIE MOTA MD Dec 28, 2018 22:22
[2018-12-29] MEDS: traZODone 50 MG TABLET. PO PRN ×2 (00:06→23:47)
[2018-12-29 05:48] VITALS: BP 115/71
[2018-12-29] MEDS: PANTOPRAZOLE 40 MG TABLET. PO SCH (08:18)
[2018-12-29] MEDS: LISINOPRIL 20 MG TABLET PO SCH (08:18)
[2018-12-29] MEDS: DULoxetine HCL 30 MG CAPSULE.DR PO SCH (08:18)
[2018-12-29] MEDS: ATENOLOL 50 MG TABLET PO SCH (08:19)
[2018-12-29] MEDS: LIDOCAINE (700MG/PATCH) PATCH. TD SCH (08:20)
[2018-12-29] MEDS: ASPIRIN 81 MG TAB.CHEW PO SCH (08:20)
[2018-12-29] MEDS: ACETAMINOPHEN 325 MG TABLET PO PRN (09:28)
[2018-12-29 16:23] VITALS: BP 114/76
[2018-12-29] MEDS: HYDROcodone/APAP 7.5/325MG 1 TAB TABLET PO PRN (19:16)
[2018-12-29] MEDS: ATORVASTATIN CALCIUM 20 MG TABLET PO SCH (19:50)
[2018-12-29] MEDS: PATCH REMOVAL. MC SCH (19:52)
[2018-12-29] MEDS: HALOPERIDOL 10 MG/5 ML ORAL.CONC. PO SCH (19:52)
--- NOTE | 2018-12-29 20:31 | PN ---
DATE: 12/28/2018 This late entry for 12/28/2018 covers elements not covered in my initial note. SUBJECTIVE: I met with the patient in the evening in his room. The patient slept 5-1/2 hours previous night. Overall, he has been cooperative. No active hallucinations noted as I questioned him. REVIEW OF SYSTEMS: Positive for left shoulder pain. No CV, , pulmonary, eye, ENT system symptoms on review. MENTAL STATUS EXAM: Oriented to himself and situation. Speech has some latency, coherent. Abstraction fair, computation impaired, language function intact, attention span short. Mood and affect remain somewhat withdrawn at times, but improved. LABORATORY DATA: Reviewed. IMPRESSION: Unchanged from initial note. PLAN: No change from initial note. Maintain Haldol 2 mg at bedtime for now. MAN Sheng MOTA MD DR: SPRING/pb JOB#: [id number] / [id number]
[2018-12-29] MEDS: BENZOCAINE/MENTHOL LOZNGE 18'S BOX. PO PRN (20:44)
[2018-12-29] MEDS: diphenhydrAMINE HCL 25 MG CAPSULE PO PRN (20:44)
--- NOTE | 2018-12-29 22:29 | PDOC ---
Exam Note: Michael Note: Please also refer to the separate dictated note~for this date of service dictated separately.~Patient seen individually. Discussed the patient with Nursing staff reviewed the chart.~Reviewed interim history and current functioning. Reviewed vital signs,~Labs/ Radiology~and current medications noted below. Continue current treatment with the changes noted in the dictated addendum note Assessment: Vital Signs: Vital Signs Date Time Temp Pulse Resp B/P (MAP) Pulse Ox O2 Delivery O2 Flow Rate FiO2 12/29/18 20:16 98 12/29/18 19:54 67 114/76 12/29/18 19:16 18 Room Air 12/29/18 16:23 97.8 I&O Intake and Output 12/29/18 07:01 Intake Total 1200 ml Balance 1200 ml Intake Oral 1200 ml Current Medications: Meds: Current Medications Acetaminophen (Tylenol) 650 mg PRN Q6HRS PRN PO PAIN / TEMP Last administered on 12/29/18 09:28; Start 12/23/18 at 05:30 Multi-Ingredient Ointment (Analgesic [place]) 1 oralia PRN QID PRN TP MUSCLE PAIN Last administered on 12/28/18 06:47; Start 12/23/18 at 05:30 Al Hydroxide/Mg Hydroxide (Mylanta Plus Xs) 15 ml PRN AFTMEALHC PRN PO DYSPEPSIA; Start 12/23/18 at 05:30 Magnesium Hydroxide (Milk Of Magnesia) 2,400 mg PRN QHS PRN PO CONSTIPATION; Start 12/23/18 at 05:30 Diphenhydramine HCl (Benadryl) 25 mg PRN QHS PRN PO INSOMNIA Last administered on 12/29/18 20:44; Start 12/23/18 at 05:30 Lorazepam (Ativan) 1 mg PRN TID PRN PO ANXIETY / AGITATION Last administered on 12/24/18 23:47; Start 12/23/18 at 05:30 Citalopram Hydrobromide (CeleXA) 40 mg DAILY PO Last administered on 12/24/18 07:53; Start 12/23/18 at 09:00; Stop 12/24/18 at 19:07; Status DC Acetaminophen/ Hydrocodone Bitart (Lortab 7.5/325) 1 tab PRN QID PRN PO PAIN Last administered on 12/29/18 19:16; Start 12/23/18 at 05:30 Aspirin (Children'S Aspirin) 81 mg DAILYWBKFT PO Last administered on 12/29/18 08:20; Start 12/23/18 at 08:00 Atorvastatin Calcium (Lipitor) 40 mg QHS PO Last administered on 12/29/18 19:50 ; Start 12/23/18 at 21:00 Atenolol (Tenormin) 100 mg DAILY PO Last administered on 12/29/18 08:19; Start 12/23/18 at 09:00 Lisinopril (Prinivil) 30 mg DAILY PO Last administered on 12/23/18 07:40; Start 12/23/18 at 09:00; Stop 12/23/18 at 13:46; Status DC Pantoprazole Sodium (Protonix) 40 mg DAILYAC PO Last administered on 12/29/18 08:18; Start 12/23/18 at 07:30 Olanzapine (ZyPREXA ZYDIS) 2.5 mg PRN Q2HR PRN PO PSYCHOSIS Last administered on 12/23/18 06:34; Start 12/23/18 at 05:30 Lisinopril (Prinivil) 40 mg DAILY PO Last administered on 12/29/18 08:18; Start 12/24/18 at 09:00 Nifedipine (Procardia Xl) 30 mg BID PO Last administered on 12/29/18 19:54; Start 12/23/18 at 21:00 Haloperidol (Haldol) 2 mg QHS PO ; Start 12/23/18 at 21:00; Stop 12/23/18 at 21:00 ; Status DC Haloperidol (Haldol) 2 mg QHS PO ; Start 12/23/18 at 21:00; Stop 12/23/18 at 21:00 ; Status DC Haloperidol Lactate (HALDOL 0.5mg ORAL CONC) 2 mg QHS PO Last administered on 20:54; Start 12/23/18 at 21:00; Stop 12/24/18 at 16:22; Status DC Haloperidol Lactate (HALDOL 0.5mg ORAL CONC) 2 mg QHS PO Last administered on 20:16; Start 12/24/18 at 21:00; Stop 12/28/18 at 20:36; Status DC Duloxetine HCl (Cymbalta) 30 mg DAILY PO Last administered on 12/29/18 08:18; Start 12/25/18 at 09:00 Trazodone HCl (Desyrel) 50 mg PRN QHS PRN PO INSOMNIA, MAY REPEAT X1 Last administered on 12/29/18 00:06; Start 12/25/18 at 16:30 Throat Lozenges (Cepacol Sore Throat Lozenge) 1 justa PRN Q2HR PRN PO SORE THROAT Last administered on 12/29/18 20:44; Start 12/26/18 at 20:45 Lidocaine (Lidoderm) 1 patch DAILY TD Last administered on 12/29/18 08:20; Start 12/28/18 at 15:00 Miscellaneous (Lidoderm Patch Removal) 1 ea QHS MC Last administered on 19:52; Start 12/28/18 at 21:00 Haloperidol Lactate (HALDOL 10mg ORAL CONC) 2 mg QHS PO Last administered on 19:52; Start 12/28/18 at 21:00 Active Scripts Active Reported Pantoprazole Sodium 40 Mg Tablet.dr 40 Mg PO DAILY Ativan (Lorazepam) 1 Mg Tablet 1 Mg PO PRN TID PRN Lisinopril 30 Mg Tablet 30 Mg PO DAILY Escitalopram Oxalate 20 Mg Tablet 20 Mg PO DAILY Diphenhydramine Hcl 25 Mg Capsule 25 Mg PO HS PRN Bisoprolol Fumarate 10 Mg Tablet 10 Mg PO DAILY Atorvastatin Calcium 40 Mg Tablet 40 Mg PO DAILY Aspirin 81 Mg Tab.chew 81 Mg PO DAILY Hydrocodone-Apap 7.5-325 (Hydrocodone Bit/Acetaminophen) 1 Each Tablet 1 Tab PO PRN QID PRN I have reviewed the current psychotropics carefully including drug interactions. Risk benefit ratio favors no change other than as noted in my dictated progress note. Diagnosis: Problems: (1) Anxiety disorder (2) Alcoholic psychosis (3) Psychosis, atypical (4) Psychotic depression KATIE MOTA MD Dec 29, 2018 22:29
[2018-12-30 06:40] VITALS: BP 122/69
[2018-12-30 07:54] LABS: BASO # 0.1 x10^3/uL (0.0-0.2); BASO % 1 % (0-3); EOS # 0.5 x10^3/uL (0.0-0.7); EOS % 8 % (0-3); HEMATOCRIT 44.4 % (39.0-53.0); LYMPH # 1.4 x10^3/uL (1.0-4.8); LYMPH % 21 % (24-48); MEAN CORPUSCULAR HEMOGLOBIN 33 pg (25-35); MEAN CORPUSCULAR HGB CONC 34 g/dL (31-37); MEAN CORPUSCULAR VOLUME 98 fL (79-100); MONO # 0.8 x10^3/uL (0.0-1.1); MONO % 12 % (0-9); NEUT # 3.9 x10^3uL (1.8-7.7); NEUT % 58 % (31-73); PLATELET COUNT 282 x10^3/uL (140-400); RED BLOOD COUNT 4.53 x10^6/uL (4.30-5.70); RED CELL DISTRIBUTION WIDTH 12.6 % (11.5-14.5); WHITE BLOOD COUNT 6.7 x10^3/uL (4.0-11.0)
[2018-12-30 08:04] LABS: ALBUMIN 3.4 g/dL (3.4-5.0); ALBUMIN/GLOBULIN RATIO 0.9 (1.0-1.7); CALCIUM 9.1 mg/dL (8.5-10.1); CREATININE 0.9 mg/dL (0.7-1.3); MAGNESIUM 2.1 mg/dL (1.8-2.4); POTASSIUM 4.3 mmol/L (3.5-5.1); TOTAL BILIRUBIN 0.6 mg/dL (0.2-1.0); TOTAL PROTEIN 7.1 g/dL (6.4-8.2)
[2018-12-30] MEDS: LIDOCAINE (700MG/PATCH) PATCH. TD SCH (08:05)
[2018-12-30] MEDS: PANTOPRAZOLE 40 MG TABLET. PO SCH (08:06)
[2018-12-30] MEDS: ASPIRIN 81 MG TAB.CHEW PO SCH (08:06)
[2018-12-30] MEDS: LISINOPRIL 20 MG TABLET PO SCH (08:06)
[2018-12-30] MEDS: DULoxetine HCL 30 MG CAPSULE.DR PO SCH (08:06)
[2018-12-30] MEDS: ATENOLOL 50 MG TABLET PO SCH (08:07)
[2018-12-30] MEDS: ACETAMINOPHEN 325 MG TABLET PO PRN ×2 (08:20→14:14)
[2018-12-30 16:39] VITALS: BP 147/75
[2018-12-30] MEDS: diphenhydrAMINE HCL 25 MG CAPSULE PO PRN (20:28)
[2018-12-30] MEDS: traZODone 100 MG TABLET. PO SCH (20:28)
[2018-12-30] MEDS: ATORVASTATIN CALCIUM 20 MG TABLET PO SCH (20:28)
[2018-12-30] MEDS: HYDROcodone/APAP 7.5/325MG 1 TAB TABLET PO PRN (20:29)
[2018-12-30] MEDS: PATCH REMOVAL. MC SCH ×2 (20:29→21:00)
[2018-12-30] MEDS: BENZOCAINE/MENTHOL LOZNGE 18'S BOX. PO PRN (20:30)
[2018-12-30] MEDS: HALOPERIDOL 10 MG/5 ML ORAL.CONC. PO SCH (20:30)
--- NOTE | 2018-12-30 21:50 | PDOC ---
Exam Note: Michael Note: Please also refer to the separate dictated note~for this date of service dictated separately.~Patient seen individually. Discussed the patient with Nursing staff reviewed the chart.~Reviewed interim history and current functioning. Reviewed vital signs,~Labs/ Radiology~and current medications noted below. Continue current treatment with the changes noted in the dictated addendum note Assessment: Vital Signs: Vital Signs Date Time Temp Pulse Resp B/P (MAP) Pulse Ox O2 Delivery O2 Flow Rate FiO2 12/30/18 21:29 96 12/30/18 20:29 67 147/75 12/30/18 16:39 98.2 18 12/29/18 19:16 Room Air I&O Intake and Output 12/30/18 07:01 Intake Total 965 ml Balance 965 ml Intake Oral 965 ml Labs: Laboratory Tests Test 12/30/18 07:36 White Blood Count 6.7 x10^3/uL (4.0-11.0) Red Blood Count 4.53 x10^6/uL (4.30-5.70) Hemoglobin 15.0 g/dL (13.0-17.5) Hematocrit 44.4 % (39.0-53.0) Mean Corpuscular Volume 98 fL (79-100) Mean Corpuscular Hemoglobin 33 pg (25-35) Mean Corpuscular Hemoglobin Concent 34 g/dL (31-37) Red Cell Distribution Width 12.6 % (11.5-14.5) Platelet Count 282 x10^3/uL (140-400) Neutrophils (%) (Auto) 58 % (31-73) Lymphocytes (%) (Auto) 21 % (24-48) L Monocytes (%) (Auto) 12 % (0-9) H Eosinophils (%) (Auto) 8 % (0-3) H Basophils (%) (Auto) 1 % (0-3) Neutrophils # (Auto) 3.9 x10^3uL (1.8-7.7) Lymphocytes # (Auto) 1.4 x10^3/uL (1.0-4.8) Monocytes # (Auto) 0.8 x10^3/uL (0.0-1.1) Eosinophils # (Auto) 0.5 x10^3/uL (0.0-0.7) Basophils # (Auto) 0.1 x10^3/uL (0.0-0.2) Sodium Level 141 mmol/L (136-145) Potassium Level 4.3 mmol/L (3.5-5.1) Chloride Level 104 mmol/L (98-107) Carbon Dioxide Level 31 mmol/L (21-32) Anion Gap 6 (6-14) Blood Urea Nitrogen 23 mg/dL (8-26) Creatinine 0.9 mg/dL (0.7-1.3) Estimated GFR (Cockcroft-Gault) 81.0 BUN/Creatinine Ratio 26 (6-20) H Glucose Level 106 mg/dL (70-99) H Calcium Level 9.1 mg/dL (8.5-10.1) Magnesium Level 2.1 mg/dL (1.8-2.4) Total Bilirubin 0.6 mg/dL (0.2-1.0) Aspartate Amino Transferase (AST) 16 U/L (15-37) Alanine Aminotransferase (ALT) 26 U/L (16-63) Alkaline Phosphatase 60 U/L (46-116) Total Protein 7.1 g/dL (6.4-8.2) Albumin 3.4 g/dL (3.4-5.0) Albumin/Globulin Ratio 0.9 (1.0-1.7) L Current Medications: Meds: Current Medications Acetaminophen (Tylenol) 650 mg PRN Q6HRS PRN PO PAIN / TEMP Last administered on 12/30/18at 14:14; Start 12/23/18 at 05:30 Multi-Ingredient Ointment (Analgesic [place]) 1 oralia PRN QID PRN TP MUSCLE PAIN Last administered on 12/28/18at 06:47; Start 12/23/18 at 05:30 Al Hydroxide/Mg Hydroxide (Mylanta Plus Xs) 15 ml PRN AFTMEALHC PRN PO DYSPEPSIA; Start 12/23/18 at 05:30 Magnesium Hydroxide (Milk Of Magnesia) 2,400 mg PRN QHS PRN PO CONSTIPATION; Start 12/23/18 at 05:30 Diphenhydramine HCl (Benadryl) 25 mg PRN QHS PRN PO INSOMNIA Last administered on 12/30/18at 20:28; Start 12/23/18 at 05:30 Lorazepam (Ativan) 1 mg PRN TID PRN PO ANXIETY / AGITATION Last administered on 12/24/18 23:47; Start 12/23/18 at 05:30 Citalopram Hydrobromide (CeleXA) 40 mg DAILY PO Last administered on 12/24/18 07:53; Start 12/23/18 at 09:00; Stop 12/24/18 at 19:07; Status DC Acetaminophen/ Hydrocodone Bitart (Lortab 7.5/325) 1 tab PRN QID PRN PO PAIN Last administered on 12/30/18 20:29; Start 12/23/18 at 05:30 Aspirin (Children'S Aspirin) 81 mg DAILYWBKFT PO Last administered on 12/30/18 08:06; Start 12/23/18 at 08:00 Atorvastatin Calcium (Lipitor) 40 mg QHS PO Last administered on 12/30/18 20:28 ; Start 12/23/18 at 21:00 Atenolol (Tenormin) 100 mg DAILY PO Last administered on 12/30/18 08:07; Start 12/23/18 at 09:00 Lisinopril (Prinivil) 30 mg DAILY PO Last administered on 12/23/18 07:40; Start 12/23/18 at 09:00; Stop 12/23/18 at 13:46; Status DC Pantoprazole Sodium (Protonix) 40 mg DAILYAC PO Last administered on 12/30/18 08:06; Start 12/23/18 at 07:30 Olanzapine (ZyPREXA ZYDIS) 2.5 mg PRN Q2HR PRN PO PSYCHOSIS Last administered on 12/23/18 06:34; Start 12/23/18 at 05:30 Lisinopril (Prinivil) 40 mg DAILY PO Last administered on 12/30/18 08:06; Start 12/24/18 at 09:00 Nifedipine (Procardia Xl) 30 mg BID PO Last administered on 12/30/18 20:29; Start 12/23/18 at 21:00 Haloperidol (Haldol) 2 mg QHS PO ; Start 12/23/18 at 21:00; Stop 12/23/18 at 21:00 ; Status DC Haloperidol (Haldol) 2 mg QHS PO ; Start 12/23/18 at 21:00; Stop 12/23/18 at 21:00 ; Status DC Haloperidol Lactate (HALDOL 0.5mg ORAL CONC) 2 mg QHS PO Last administered on 20:54; Start 12/23/18 at 21:00; Stop 12/24/18 at 16:22; Status DC Haloperidol Lactate (HALDOL 0.5mg ORAL CONC) 2 mg QHS PO Last administered on 20:16; Start 12/24/18 at 21:00; Stop 12/28/18 at 20:36; Status DC Duloxetine HCl (Cymbalta) 30 mg DAILY PO Last administered on 12/30/18 08:06; Start 12/25/18 at 09:00 Trazodone HCl (Desyrel) 50 mg PRN QHS PRN PO INSOMNIA, MAY REPEAT X1 Last administered on 12/29/18 23:47; Start 12/25/18 at 16:30; Stop 12/30/18 at 19:53; Status DC Throat Lozenges (Cepacol Sore Throat Lozenge) 1 justa PRN Q2HR PRN PO SORE THROAT Last administered on 12/30/18 20:30; Start 12/26/18 at 20:45 Lidocaine (Lidoderm) 1 patch DAILY TD Last administered on 12/30/18 08:05; Start 12/28/18 at 15:00 Miscellaneous (Lidoderm Patch Removal) 1 ea QHS MC Last administered on 20:29; Start 12/28/18 at 21:00 Haloperidol Lactate (HALDOL 10mg ORAL CONC) 2 mg QHS PO Last administered on 20:30; Start 12/28/18 at 21:00 Lidocaine (Lidoderm) 1 patch DAILY TD ; Start 12/31/18 at 09:00 Miscellaneous (Lidoderm Patch Removal) 1 ea QHS MC Last administered on 21:00; Start 12/30/18 at 21:00 Trazodone HCl (Desyrel) 100 mg QHS PO Last administered on 12/30/18 20:28; Start 12/30/18 at 21:00 Trazodone HCl (Desyrel) 100 mg PRN QHS PRN PO INSOMNIA; Start 12/30/18 at 20:00 Active Scripts Active Reported Pantoprazole Sodium 40 Mg Tablet.dr 40 Mg PO DAILY Ativan (Lorazepam) 1 Mg Tablet 1 Mg PO PRN TID PRN Lisinopril 30 Mg Tablet 30 Mg PO DAILY Escitalopram Oxalate 20 Mg Tablet 20 Mg PO DAILY Diphenhydramine Hcl 25 Mg Capsule 25 Mg PO HS PRN Bisoprolol Fumarate 10 Mg Tablet 10 Mg PO DAILY Atorvastatin Calcium 40 Mg Tablet 40 Mg PO DAILY Aspirin 81 Mg Tab.chew 81 Mg PO DAILY Hydrocodone-Apap 7.5-325 (Hydrocodone Bit/Acetaminophen) 1 Each Tablet 1 Tab PO PRN QID PRN I have reviewed the current psychotropics carefully including drug interactions. Risk benefit ratio favors no change other than as noted in my dictated progress note. Diagnosis: Problems: (1) Anxiety disorder (2) Alcoholic psychosis (3) Psychosis, atypical (4) Psychotic depression KATIE MOTA MD Dec 30, 2018 21:50
--- NOTE | 2018-12-30 23:22 | PN ---
DATE: 12/30/2018 PSYCHIATRIC PROGRESS NOTE This late entry, 12/29/2018, covers elements not covered in my initial note. SUBJECTIVE: I met with the patient in the evening. The patient slept 5-1/4 hours previous night. I met with him in his room. He continues to complain of left shoulder pain and has been started on lidocaine patch, which is helpful. He denies any overt hallucinations. No CV, , pulmonary, eye, ENT system symptoms on review. MENTAL STATUS EXAM: Oriented to himself and situation. Speech is coherent, has some latency. Abstraction fair, computation impaired, language function intact, attention span short. Mood and affect somewhat withdrawn, but appropriate. LABORATORY DATA: Reviewed. IMPRESSION: Unchanged from initial note. PLAN: No change from initial note. MAN Sheng MOTA MD DR: SPRING/pb JOB#: [id number] / [id number]
[2018-12-31] MEDS: traZODone 100 MG TABLET. PO PRN ×2 (00:30→21:49)
[2018-12-31 06:35] VITALS: BP 112/59
[2018-12-31] MEDS: LIDOCAINE (700MG/PATCH) PATCH. TD SCH ×2 (07:59→08:03)
[2018-12-31] MEDS: PANTOPRAZOLE 40 MG TABLET. PO SCH (07:59)
[2018-12-31] MEDS: ASPIRIN 81 MG TAB.CHEW PO SCH (08:00)
[2018-12-31] MEDS: DULoxetine HCL 30 MG CAPSULE.DR PO SCH (08:00)
[2018-12-31] MEDS: ATENOLOL 50 MG TABLET PO SCH (08:01)
[2018-12-31] MEDS: LISINOPRIL 20 MG TABLET PO SCH (08:44)
[2018-12-31 16:53] VITALS: BP 111/51
[2018-12-31] MEDS: traZODone 100 MG TABLET. PO SCH (20:04)
[2018-12-31] MEDS: PATCH REMOVAL. MC SCH ×2 (20:04→20:05)
[2018-12-31] MEDS: HALOPERIDOL 10 MG/5 ML ORAL.CONC. PO SCH (20:04)
[2018-12-31] MEDS: ATORVASTATIN CALCIUM 20 MG TABLET PO SCH (20:05)
[2018-12-31] MEDS: diphenhydrAMINE HCL 25 MG CAPSULE PO PRN (21:48)
[2018-12-31] MEDS: BENZOCAINE/MENTHOL LOZNGE 18'S BOX. PO PRN (21:54)
--- NOTE | 2018-12-31 22:40 | PDOC ---
Exam Note: Michael Note: Please also refer to the separate dictated note~for this date of service dictated separately.~Patient seen individually. Discussed the patient with Nursing staff reviewed the chart.~Reviewed interim history and current functioning. Reviewed vital signs,~Labs/ Radiology~and current medications noted below. Continue current treatment with the changes noted in the dictated addendum note Assessment: Vital Signs: Vital Signs Date Time Temp Pulse Resp B/P (MAP) Pulse Ox O2 Delivery O2 Flow Rate FiO2 12/31/18 20:06 65 111/51 12/31/18 16:53 98.1 18 95 12/31/18 06:35 Room Air I&O Intake and Output 12/31/18 07:01 Intake Total 1120 ml Balance 1120 ml Intake Oral 1120 ml Current Medications: Meds: Current Medications Acetaminophen (Tylenol) 650 mg PRN Q6HRS PRN PO PAIN / TEMP Last administered on 12/30/18 14:14; Start 12/23/18 at 05:30 Multi-Ingredient Ointment (Analgesic [place]) 1 oralia PRN QID PRN TP MUSCLE PAIN Last administered on 12/28/18 06:47; Start 12/23/18 at 05:30 Al Hydroxide/Mg Hydroxide (Mylanta Plus Xs) 15 ml PRN AFTMEALHC PRN PO DYSPEPSIA; Start 12/23/18 at 05:30 Magnesium Hydroxide (Milk Of Magnesia) 2,400 mg PRN QHS PRN PO CONSTIPATION; Start 12/23/18 at 05:30 Diphenhydramine HCl (Benadryl) 25 mg PRN QHS PRN PO INSOMNIA Last administered on 12/31/18 21:48; Start 12/23/18 at 05:30 Lorazepam (Ativan) 1 mg PRN TID PRN PO ANXIETY / AGITATION Last administered on 12/24/18 23:47; Start 12/23/18 at 05:30 Citalopram Hydrobromide (CeleXA) 40 mg DAILY PO Last administered on 12/24/18 07:53; Start 12/23/18 at 09:00; Stop 12/24/18 at 19:07; Status DC Acetaminophen/ Hydrocodone Bitart (Lortab 7.5/325) 1 tab PRN QID PRN PO PAIN Last administered on 12/30/18 20:29; Start 12/23/18 at 05:30 Aspirin (Children'S Aspirin) 81 mg DAILYWBKFT PO Last administered on 08:00; Start 12/23/18 at 08:00 Atorvastatin Calcium (Lipitor) 40 mg QHS PO Last administered on 12/31/18 20: 05; Start 12/23/18 at 21:00 Atenolol (Tenormin) 100 mg DAILY PO Last administered on 12/31/18 08:01; Start 12/23/18 at 09:00 Lisinopril (Prinivil) 30 mg DAILY PO Last administered on 12/23/18 07:40; Start 12/23/18 at 09:00; Stop 12/23/18 at 13:46; Status DC Pantoprazole Sodium (Protonix) 40 mg DAILYAC PO Last administered on 12/31/18 07:59; Start 12/23/18 at 07:30 Olanzapine (ZyPREXA ZYDIS) 2.5 mg PRN Q2HR PRN PO PSYCHOSIS Last administered on 12/23/18 06:34; Start 12/23/18 at 05:30 Lisinopril (Prinivil) 40 mg DAILY PO Last administered on 12/31/18 08:44; Start 12/24/18 at 09:00 Nifedipine (Procardia Xl) 30 mg BID PO Last administered on 12/31/18 20:06; Start 12/23/18 at 21:00 Haloperidol (Haldol) 2 mg QHS PO ; Start 12/23/18 at 21:00; Stop 12/23/18 at 21:00 ; Status DC Haloperidol (Haldol) 2 mg QHS PO ; Start 12/23/18 at 21:00; Stop 12/23/18 at 21:00 ; Status DC Haloperidol Lactate (HALDOL 0.5mg ORAL CONC) 2 mg QHS PO Last administered on 20:54; Start 12/23/18 at 21:00; Stop 12/24/18 at 16:22; Status DC Haloperidol Lactate (HALDOL 0.5mg ORAL CONC) 2 mg QHS PO Last administered on 20:16; Start 12/24/18 at 21:00; Stop 12/28/18 at 20:36; Status DC Duloxetine HCl (Cymbalta) 30 mg DAILY PO Last administered on 12/31/18 08:00; Start 12/25/18 at 09:00 Trazodone HCl (Desyrel) 50 mg PRN QHS PRN PO INSOMNIA, MAY REPEAT X1 Last administered on 12/29/18 23:47; Start 12/25/18 at 16:30; Stop 12/30/18 at 19:53; Status DC Throat Lozenges (Cepacol Sore Throat Lozenge) 1 justa PRN Q2HR PRN PO SORE THROAT Last administered on 12/31/18 21:54; Start 12/26/18 at 20:45 Lidocaine (Lidoderm) 1 patch DAILY TD Last administered on 12/31/18 07:59; Start 12/28/18 at 15:00 Miscellaneous (Lidoderm Patch Removal) 1 ea QHS MC Last administered on 20:04; Start 12/28/18 at 21:00 Haloperidol Lactate (HALDOL 10mg ORAL CONC) 2 mg QHS PO Last administered on 20:04; Start 12/28/18 at 21:00 Lidocaine (Lidoderm) 1 patch DAILY TD Last administered on 12/31/18 08:03; Start 12/31/18 at 09:00 Miscellaneous (Lidoderm Patch Removal) 1 ea QHS MC Last administered on 20:05; Start 12/30/18 at 21:00 Trazodone HCl (Desyrel) 100 mg QHS PO Last administered on 12/31/18 20:04; Start 12/30/18 at 21:00 Trazodone HCl (Desyrel) 100 mg PRN QHS PRN PO INSOMNIA Last administered on 21:49; Start 12/30/18 at 20:00 Active Scripts Active Reported Pantoprazole Sodium 40 Mg Tablet.dr 40 Mg PO DAILY Ativan (Lorazepam) 1 Mg Tablet 1 Mg PO PRN TID PRN Lisinopril 30 Mg Tablet 30 Mg PO DAILY Escitalopram Oxalate 20 Mg Tablet 20 Mg PO DAILY Diphenhydramine Hcl 25 Mg Capsule 25 Mg PO HS PRN Bisoprolol Fumarate 10 Mg Tablet 10 Mg PO DAILY Atorvastatin Calcium 40 Mg Tablet 40 Mg PO DAILY Aspirin 81 Mg Tab.chew 81 Mg PO DAILY Hydrocodone-Apap 7.5-325 (Hydrocodone Bit/Acetaminophen) 1 Each Tablet 1 Tab PO PRN QID PRN I have reviewed the current psychotropics carefully including drug interactions. Risk benefit ratio favors no change other than as noted in my dictated progress note. Diagnosis: Problems: (1) Anxiety disorder (2) Alcoholic psychosis (3) Psychosis, atypical (4) Psychotic depression KATIE MOTA MD Dec 31, 2018 22:40
--- NOTE | 2018-12-31 23:33 | PN ---
DATE: 12/30/2018 PSYCHIATRIC PROGRESS NOTE This late entry 12/30/2018 covers elements not covered in my initial note. SUBJECTIVE: I met with the patient in the evening. The patient slept just 2-1/2 hours previous night. REVIEW OF SYSTEMS: Per nursing report, no active hallucinations noted. He is otherwise cooperative. No CV, , pulmonary, eye, ENT system symptoms on review. MENTAL STATUS EXAM: Oriented to himself and situation. Speech is coherent, abstraction fair, computation impaired, language function intact. Mood and affect somewhat withdrawn at times, but improved. LABORATORY DATA: Reviewed. IMPRESSION: Unchanged from initial note. PLAN: Increase trazodone to 100 mg at bedtime, may repeat x 1 for insomnia. Consequent to his insomnia, rest unchanged from initial note. MAN Sheng MOTA MD DR: [place]/pb JOB#: [id number] / [id number]
[2019-01-01 05:58] VITALS: BP 95/57
[2019-01-01] MEDS: ASPIRIN 81 MG TAB.CHEW PO SCH (08:08)
[2019-01-01] MEDS: PANTOPRAZOLE 40 MG TABLET. PO SCH (08:11)
[2019-01-01] MEDS: ATENOLOL 50 MG TABLET PO SCH (08:11)
[2019-01-01] MEDS: DULoxetine HCL 30 MG CAPSULE.DR PO SCH (08:11)
[2019-01-01] MEDS: LIDOCAINE (700MG/PATCH) PATCH. TD SCH ×2 (08:12)
[2019-01-01] MEDS: LISINOPRIL 20 MG TABLET PO SCH (08:12)
[2019-01-01] MEDS ORDERED: MINERAL OIL/PETROLATUM TOPICAL CREAM 113GM JAR. TP PRN (09:45)
[2019-01-01 16:17] VITALS: BP 129/74
[2019-01-01] MEDS: traZODone 100 MG TABLET. PO SCH (19:19)
[2019-01-01] MEDS: PATCH REMOVAL. MC SCH ×2 (19:19)
[2019-01-01] MEDS: ATORVASTATIN CALCIUM 20 MG TABLET PO SCH (19:19)
[2019-01-01] MEDS: HALOPERIDOL 10 MG/5 ML ORAL.CONC. PO SCH (19:21)
[2019-01-01] MEDS: diphenhydrAMINE HCL 25 MG CAPSULE PO PRN (19:22)
[2019-01-01] MEDS: BENZOCAINE/MENTHOL LOZNGE 18'S BOX. PO PRN (19:22)
[2019-01-01] MEDS: HYDROcodone/APAP 7.5/325MG 1 TAB TABLET PO PRN (20:01)
--- NOTE | 2019-01-02 04:08 | PN ---
DATE: 12/31/2018 PSYCHIATRIC PROGRESS NOTE This late entry 12/31/2018 covers elements not covered in my initial note. SUBJECTIVE: I met with the patient in the evening. The patient slept 7 hours previous night. Overall, the patient remains somewhat withdrawn. He shared with the nursing staff about questionable hallucinations, though he denied seeing green men. REVIEW OF SYSTEMS: No CV, , pulmonary, eye system symptoms on review. MENTAL STATUS EXAM: Oriented to himself situation. Speech is coherent, has some latency. Abstraction fair, computation impaired, language function intact, attention span short. Mood and affect somewhat withdrawn. LABORATORY DATA: Reviewed. IMPRESSION: Unchanged from initial note. PLAN: Increase Haldol from 2 mg at bedtime to 3 mg p.o. at bedtime. Maintain Cymbalta 30 mg a day, Ativan p.r.n., trazodone at bedtime p.r.n. Adjust further as clinically indicated. KATIE MOTA MD DR: [place]/pb JOB#: [id number] / [id number]
[2019-01-02 05:39] VITALS: BP 122/61
[2019-01-02] MEDS: PANTOPRAZOLE 40 MG TABLET. PO SCH (07:58)
[2019-01-02] MEDS: DULoxetine HCL 30 MG CAPSULE.DR PO SCH (07:58)
[2019-01-02] MEDS: ATENOLOL 50 MG TABLET PO SCH (07:58)
[2019-01-02] MEDS: ASPIRIN 81 MG TAB.CHEW PO SCH (07:58)
[2019-01-02] MEDS: LIDOCAINE (700MG/PATCH) PATCH. TD SCH ×2 (07:59)
[2019-01-02] MEDS: LISINOPRIL 20 MG TABLET PO SCH (08:01)
--- NOTE | 2019-01-02 09:07 | PDOC ---
Exam Note: Michael Note: Late entry for DOS 01.01.2019. Please also refer to the separate dictated note~ for this date of service dictated separately.~Patient seen individually. Discussed the patient with Nursing staff reviewed the chart.~Reviewed interim history and current functioning. Reviewed vital signs,~Labs/ Radiology~and current medications noted below. Continue current treatment with the changes noted in the dictated addendum note Assessment: Vital Signs: VS - Last 72 Hours, by Label Date Time Temp Pulse Resp B/P (MAP) Pulse Ox O2 Delivery O2 Flow Rate FiO2 01/02/19 08:01 66 122/61 01/02/19 07:58 66 122/61 01/02/19 05:39 97.5 66 18 122/61 (81) 97 01/01/19 21:01 98 01/01/19 20:01 98 01/01/19 16:17 98.0 76 19 129/74 (92) 98 01/01/19 08:12 73 95/57 01/01/19 08:11 73 95/57 01/01/19 08:08 73 95/57 01/01/19 05:58 97.6 73 18 95/57 (70) 94 12/31/18 20:06 65 111/51 12/31/18 16:53 98.1 65 18 111/51 (71) 95 12/31/18 08:44 67 112/59 12/31/18 08:01 67 112/59 12/31/18 08:00 67 112/59 12/31/18 06:35 97.8 67 20 112/59 (76) 98 Room Air 12/30/18 20:29 67 147/75 12/30/18 20:29 96 12/30/18 16:39 98.2 67 18 147/75 (99) 96 Vital Signs Date Time Temp Pulse Resp B/P (MAP) Pulse Ox O2 Delivery O2 Flow Rate FiO2 01/02/19 08:01 66 122/61 01/02/19 05:39 97.5 18 97 12/31/18 06:35 Room Air I&O Intake and Output 01/02/19 07:00 Intake Total 1680 ml Balance 1680 ml Intake Oral 1680 ml # Voids 1 Current Medications: Meds: Current Medications Acetaminophen (Tylenol) 650 mg PRN Q6HRS PRN PO PAIN / TEMP Last administered on 12/30/18 14:14; Start 12/23/18 at 05:30 Multi-Ingredient Ointment (Analgesic [place]) 1 oralia PRN QID PRN TP MUSCLE PAIN Last administered on 12/28/18 06:47; Start 12/23/18 at 05:30 Al Hydroxide/Mg Hydroxide (Mylanta Plus Xs) 15 ml PRN AFTMEALHC PRN PO DYSPEPSIA; Start 12/23/18 at 05:30 Magnesium Hydroxide (Milk Of Magnesia) 2,400 mg PRN QHS PRN PO CONSTIPATION; Start 12/23/18 at 05:30 Diphenhydramine HCl (Benadryl) 25 mg PRN QHS PRN PO INSOMNIA Last administered on 01/01/19 19:22; Start 12/23/18 at 05:30 Lorazepam (Ativan) 1 mg PRN TID PRN PO ANXIETY / AGITATION Last administered on 12/24/18 23:47; Start 12/23/18 at 05:30 Citalopram Hydrobromide (CeleXA) 40 mg DAILY PO Last administered on 12/24/18 07:53; Start 12/23/18 at 09:00; Stop 12/24/18 at 19:07; Status DC Acetaminophen/ Hydrocodone Bitart (Lortab 7.5/325) 1 tab PRN QID PRN PO PAIN Last administered on 01/01/19 20:01; Start 12/23/18 at 05:30 Aspirin (Children'S Aspirin) 81 mg DAILYWBKFT PO Last administered on 07:58; Start 12/23/18 at 08:00 Atorvastatin Calcium (Lipitor) 40 mg QHS PO Last administered on 01/01/19 19: 19; Start 12/23/18 at 21:00 Atenolol (Tenormin) 100 mg DAILY PO Last administered on 01/02/19 07:58; Start 12/23/18 at 09:00 Lisinopril (Prinivil) 30 mg DAILY PO Last administered on 12/23/18 07:40; Start 12/23/18 at 09:00; Stop 12/23/18 at 13:46; Status DC Pantoprazole Sodium (Protonix) 40 mg DAILYAC PO Last administered on 01/02/19 07:58; Start 12/23/18 at 07:30 Olanzapine (ZyPREXA ZYDIS) 2.5 mg PRN Q2HR PRN PO PSYCHOSIS Last administered on 12/23/18 06:34; Start 12/23/18 at 05:30 Lisinopril (Prinivil) 40 mg DAILY PO Last administered on 01/01/19 08:12; Start 12/24/18 at 09:00; Stop 01/01/19 at 14:27; Status DC Nifedipine (Procardia Xl) 30 mg BID PO Last administered on 01/01/19 08:08; Start 12/23/18 at 21:00; Stop 01/01/19 at 14:27; Status DC Haloperidol (Haldol) 2 mg QHS PO ; Start 12/23/18 at 21:00; Stop 12/23/18 at 21:00 ; Status DC Haloperidol (Haldol) 2 mg QHS PO ; Start 12/23/18 at 21:00; Stop 12/23/18 at 21:00 ; Status DC Haloperidol Lactate (HALDOL 0.5mg ORAL CONC) 2 mg QHS PO Last administered on 20:54; Start 12/23/18 at 21:00; Stop 12/24/18 at 16:22; Status DC Haloperidol Lactate (HALDOL 0.5mg ORAL CONC) 2 mg QHS PO Last administered on 20:16; Start 12/24/18 at 21:00; Stop 12/28/18 at 20:36; Status DC Duloxetine HCl (Cymbalta) 30 mg DAILY PO Last administered on 01/02/19 07:58; Start 12/25/18 at 09:00 Trazodone HCl (Desyrel) 50 mg PRN QHS PRN PO INSOMNIA, MAY REPEAT X1 Last administered on 12/29/18 23:47; Start 12/25/18 at 16:30; Stop 12/30/18 at 19:53; Status DC Throat Lozenges (Cepacol Sore Throat Lozenge) 1 justa PRN Q2HR PRN PO SORE THROAT Last administered on 01/01/19 19:22; Start 12/26/18 at 20:45 Lidocaine (Lidoderm) 1 patch DAILY TD Last administered on 01/02/19 07:59; Start 12/28/18 at 15:00 Miscellaneous (Lidoderm Patch Removal) 1 ea QHS MC Last administered on 19:19; Start 12/28/18 at 21:00 Haloperidol Lactate (HALDOL 10mg ORAL CONC) 2 mg QHS PO Last administered on 20:04; Start 12/28/18 at 21:00; Stop 12/31/18 at 23:36; Status DC Lidocaine (Lidoderm) 1 patch DAILY TD Last administered on 01/02/19 07:59; Start 12/31/18 at 09:00 Miscellaneous (Lidoderm Patch Removal) 1 ea QHS MC Last administered on 19:19; Start 12/30/18 at 21:00 Trazodone HCl (Desyrel) 100 mg QHS PO Last administered on 01/01/19 19:19; Start 12/30/18 at 21:00 Trazodone HCl (Desyrel) 100 mg PRN QHS PRN PO INSOMNIA Last administered on 21:49; Start 12/30/18 at 20:00 Haloperidol Lactate (HALDOL 10mg ORAL CONC) 3 mg QHS PO Last administered on 19:21; Start 01/01/19 at 21:00 Multi-Ingred Cream/Lotion/Oil/ Oint (Hydrocerin) 1 oralia PRN Q1HR PRN TP DRY SKIN / SCALING; Start 01/01/19 at 09:45 Lisinopril (Prinivil) 20 mg DAILY PO Last administered on 01/02/19 08:01; Start 01/02/19 at 09:00 Active Scripts Active Reported Pantoprazole Sodium 40 Mg Tablet.dr 40 Mg PO DAILY Ativan (Lorazepam) 1 Mg Tablet 1 Mg PO PRN TID PRN Lisinopril 30 Mg Tablet 30 Mg PO DAILY Escitalopram Oxalate 20 Mg Tablet 20 Mg PO DAILY Diphenhydramine Hcl 25 Mg Capsule 25 Mg PO HS PRN Bisoprolol Fumarate 10 Mg Tablet 10 Mg PO DAILY Atorvastatin Calcium 40 Mg Tablet 40 Mg PO DAILY Aspirin 81 Mg Tab.chew 81 Mg PO DAILY Hydrocodone-Apap 7.5-325 (Hydrocodone Bit/Acetaminophen) 1 Each Tablet 1 Tab PO PRN QID PRN I have reviewed the current psychotropics carefully including drug interactions. Risk benefit ratio favors no change other than as noted in my dictated progress note. Diagnosis: Problems: (1) Anxiety disorder (2) Alcoholic psychosis (3) Psychosis, atypical (4) Psychotic depression KATIE MOTA MD Jan 02, 2019 09:07
[2019-01-02 15:02] VITALS: BP 93/50
--- NOTE | 2019-01-02 18:32 | PN ---
DATE: 01/01/2019 PSYCHIATRIC PROGRESS NOTE This late entry 01/01/2019 covers elements not covered in my initial note. SUBJECTIVE: I met with the patient in the evening at some length. The patient slept 7 hours previous night. Per nursing report, he has had no further hallucinations or delusions as was mentioned the night before. We did increase the Haldol from 2 mg at bedtime to 3 mg at bedtime. He is tolerating it well. REVIEW OF SYSTEMS: No CV, , pulmonary, eye, ENT system symptoms on review. MENTAL STATUS EXAM: Reasonably oriented. Speech coherent, has some latency. Abstraction fair, computation impaired, language function intact, attention span short. Mood and affect somewhat withdrawn, but much improved. Psychotic symptoms appeared to have subsided. No suicidal or homicidal ideation. LABORATORY DATA: Reviewed. IMPRESSION: Major depressive disorder with psychotic features in partial remission; anxiety disorder, unspecified. Rest unchanged. PLAN: Continue current psychotropics including Haldol 3 mg at bedtime. Adjust as clinically indicated. MAN Sheng MOTA MD DR: SPRING/pb JOB#: [id number] / [id number]
[2019-01-02] MEDS: HALOPERIDOL 10 MG/5 ML ORAL.CONC. PO SCH (20:21)
[2019-01-02] MEDS: traZODone 100 MG TABLET. PO SCH (20:21)
[2019-01-02] MEDS: ATORVASTATIN CALCIUM 20 MG TABLET PO SCH (20:21)
[2019-01-02] MEDS: PATCH REMOVAL. MC SCH ×2 (20:22)
--- NOTE | 2019-01-02 22:33 | PDOC ---
Exam Note: Michael Note: Please also refer to the separate dictated note~for this date of service dictated separately.~Patient seen individually. Discussed the patient with Nursing staff reviewed the chart.~Reviewed interim history and current functioning. Reviewed vital signs,~Labs/ Radiology~and current medications noted below. Continue current treatment with the changes noted in the dictated addendum note Assessment: Vital Signs: Vital Signs Date Time Temp Pulse Resp B/P (MAP) Pulse Ox O2 Delivery O2 Flow Rate FiO2 01/02/19 15:02 98.0 69 18 93/50 (64) 96 12/31/18 06:35 Room Air I&O Intake and Output 01/02/19 07:00 Intake Total 1680 ml Balance 1680 ml Intake Oral 1680 ml # Voids 1 Current Medications: Meds: Current Medications Acetaminophen (Tylenol) 650 mg PRN Q6HRS PRN PO PAIN / TEMP Last administered on 12/30/18 14:14; Start 12/23/18 at 05:30 Multi-Ingredient Ointment (Analgesic [employer]) 1 oralia PRN QID PRN TP MUSCLE PAIN Last administered on 12/28/18 06:47; Start 12/23/18 at 05:30 Al Hydroxide/Mg Hydroxide (Mylanta Plus Xs) 15 ml PRN AFTMEALHC PRN PO DYSPEPSIA; Start 12/23/18 at 05:30 Magnesium Hydroxide (Milk Of Magnesia) 2,400 mg PRN QHS PRN PO CONSTIPATION; Start 12/23/18 at 05:30 Diphenhydramine HCl (Benadryl) 25 mg PRN QHS PRN PO INSOMNIA Last administered on 01/01/19 19:22; Start 12/23/18 at 05:30 Lorazepam (Ativan) 1 mg PRN TID PRN PO ANXIETY / AGITATION Last administered on 12/24/18 23:47; Start 12/23/18 at 05:30 Citalopram Hydrobromide (CeleXA) 40 mg DAILY PO Last administered on 12/24/18 07:53; Start 12/23/18 at 09:00; Stop 12/24/18 at 19:07; Status DC Acetaminophen/ Hydrocodone Bitart (Lortab 7.5/325) 1 tab PRN QID PRN PO PAIN Last administered on 01/01/19 20:01; Start 12/23/18 at 05:30 Aspirin (Children'S Aspirin) 81 mg DAILYWBKFT PO Last administered on 07:58; Start 12/23/18 at 08:00 Atorvastatin Calcium (Lipitor) 40 mg QHS PO Last administered on 01/02/19 20: 21; Start 12/23/18 at 21:00 Atenolol (Tenormin) 100 mg DAILY PO Last administered on 01/02/19 07:58; Start 12/23/18 at 09:00 Lisinopril (Prinivil) 30 mg DAILY PO Last administered on 12/23/18 07:40; Start 12/23/18 at 09:00; Stop 12/23/18 at 13:46; Status DC Pantoprazole Sodium (Protonix) 40 mg DAILYAC PO Last administered on 01/02/19 07:58; Start 12/23/18 at 07:30 Olanzapine (ZyPREXA ZYDIS) 2.5 mg PRN Q2HR PRN PO PSYCHOSIS Last administered on 12/23/18 06:34; Start 12/23/18 at 05:30 Lisinopril (Prinivil) 40 mg DAILY PO Last administered on 01/01/19 08:12; Start 12/24/18 at 09:00; Stop 01/01/19 at 14:27; Status DC Nifedipine (Procardia Xl) 30 mg BID PO Last administered on 01/01/19 08:08; Start 12/23/18 at 21:00; Stop 01/01/19 at 14:27; Status DC Haloperidol (Haldol) 2 mg QHS PO ; Start 12/23/18 at 21:00; Stop 12/23/18 at 21:00 ; Status DC Haloperidol (Haldol) 2 mg QHS PO ; Start 12/23/18 at 21:00; Stop 12/23/18 at 21:00 ; Status DC Haloperidol Lactate (HALDOL 0.5mg ORAL CONC) 2 mg QHS PO Last administered on 20:54; Start 12/23/18 at 21:00; Stop 12/24/18 at 16:22; Status DC Haloperidol Lactate (HALDOL 0.5mg ORAL CONC) 2 mg QHS PO Last administered on 20:16; Start 12/24/18 at 21:00; Stop 12/28/18 at 20:36; Status DC Duloxetine HCl (Cymbalta) 30 mg DAILY PO Last administered on 01/02/19 07:58; Start 12/25/18 at 09:00 Trazodone HCl (Desyrel) 50 mg PRN QHS PRN PO INSOMNIA, MAY REPEAT X1 Last administered on 12/29/18 23:47; Start 12/25/18 at 16:30; Stop 12/30/18 at 19:53; Status DC Throat Lozenges (Cepacol Sore Throat Lozenge) 1 justa PRN Q2HR PRN PO SORE THROAT Last administered on 01/01/19 19:22; Start 12/26/18 at 20:45 Lidocaine (Lidoderm) 1 patch DAILY TD Last administered on 01/02/19 07:59; Start 12/28/18 at 15:00 Miscellaneous (Lidoderm Patch Removal) 1 ea QHS MC Last administered on 20:22; Start 12/28/18 at 21:00 Haloperidol Lactate (HALDOL 10mg ORAL CONC) 2 mg QHS PO Last administered on 20:04; Start 12/28/18 at 21:00; Stop 12/31/18 at 23:36; Status DC Lidocaine (Lidoderm) 1 patch DAILY TD Last administered on 01/02/19 07:59; Start 12/31/18 at 09:00 Miscellaneous (Lidoderm Patch Removal) 1 ea QHS MC Last administered on 20:22; Start 12/30/18 at 21:00 Trazodone HCl (Desyrel) 100 mg QHS PO Last administered on 01/02/19 20:21; Start 12/30/18 at 21:00 Trazodone HCl (Desyrel) 100 mg PRN QHS PRN PO INSOMNIA Last administered on 21:49; Start 12/30/18 at 20:00 Haloperidol Lactate (HALDOL 10mg ORAL CONC) 3 mg QHS PO Last administered on 20:21; Start 01/01/19 at 21:00 Multi-Ingred Cream/Lotion/Oil/ Oint (Hydrocerin) 1 oralia PRN Q1HR PRN TP DRY SKIN / SCALING; Start 01/01/19 at 09:45 Lisinopril (Prinivil) 20 mg DAILY PO Last administered on 01/02/19at 08:01; Start 01/02/19 at 09:00 Active Scripts Active Reported Pantoprazole Sodium 40 Mg Tablet.dr 40 Mg PO DAILY Ativan (Lorazepam) 1 Mg Tablet 1 Mg PO PRN TID PRN Lisinopril 30 Mg Tablet 30 Mg PO DAILY Escitalopram Oxalate 20 Mg Tablet 20 Mg PO DAILY Diphenhydramine Hcl 25 Mg Capsule 25 Mg PO HS PRN Bisoprolol Fumarate 10 Mg Tablet 10 Mg PO DAILY Atorvastatin Calcium 40 Mg Tablet 40 Mg PO DAILY Aspirin 81 Mg Tab.chew 81 Mg PO DAILY Hydrocodone-Apap 7.5-325 (Hydrocodone Bit/Acetaminophen) 1 Each Tablet 1 Tab PO PRN QID PRN I have reviewed the current psychotropics carefully including drug interactions. Risk benefit ratio favors no change other than as noted in my dictated progress note. Diagnosis: Problems: (1) Anxiety disorder (2) Alcoholic psychosis (3) Psychosis, atypical (4) Psychotic depression KATIE MOTA MD Jan 02, 2019 22:33
[2019-01-03 05:52] VITALS: BP 116/72
[2019-01-03] MEDS: DULoxetine HCL 30 MG CAPSULE.DR PO SCH (07:59)
[2019-01-03] MEDS: ASPIRIN 81 MG TAB.CHEW PO SCH (07:59)
[2019-01-03] MEDS: PANTOPRAZOLE 40 MG TABLET. PO SCH (07:59)
[2019-01-03] MEDS: ATENOLOL 50 MG TABLET PO SCH (08:00)
[2019-01-03] MEDS: LISINOPRIL 20 MG TABLET PO SCH (08:00)
[2019-01-03] MEDS: LIDOCAINE (700MG/PATCH) PATCH. TD SCH ×2 (08:00→08:01)
[2019-01-03 16:03] VITALS: BP 115/65
[2019-01-03] MEDS: HYDROcodone/APAP 7.5/325MG 1 TAB TABLET PO PRN (20:08)
[2019-01-03] MEDS: HALOPERIDOL 10 MG/5 ML ORAL.CONC. PO SCH (20:08)
[2019-01-03] MEDS: PATCH REMOVAL. MC SCH ×2 (20:09)
[2019-01-03] MEDS: traZODone 100 MG TABLET. PO SCH ×2 (20:09→21:55)
[2019-01-03] MEDS: ATORVASTATIN CALCIUM 20 MG TABLET PO SCH (20:09)
--- NOTE | 2019-01-03 21:48 | PN ---
DATE: 01/02/2019 PSYCHIATRIC PROGRESS NOTE SUBJECTIVE: The patient was seen on rounds in the evening of 01/02/2019. Discussed the patient with the nursing staff, reviewed the chart. Reviewed interim history, current functioning. Overall, the patient slept 7 hours previous night. He has been fairly cooperative on the unit. No active hallucinations noted. REVIEW OF SYSTEMS: No CV, , pulmonary, eye, ENT system symptoms on review. MENTAL STATUS EXAM: Reasonably oriented. Speech moderate latency, often responses monosyllabic. Abstraction is fair, computation somewhat impaired, language function intact, attention span short. Mood and affect is still somewhat withdrawn, but improved. LABORATORY DATA: Reviewed. IMPRESSION: Unchanged from initial note. PLAN: No change from initial note. Maintain Haldol 3 mg at bedtime. MAN Sheng MOTA MD DR: SPR[place]/pb JOB#: [id number] / [id number]
[2019-01-03] MEDS: diphenhydrAMINE HCL 25 MG CAPSULE PO PRN (21:54)
--- NOTE | 2019-01-03 22:12 | PDOC ---
Exam Note: Michael Note: Please also refer to the separate dictated note~for this date of service dictated separately.~Patient seen individually. Discussed the patient with Nursing staff reviewed the chart.~Reviewed interim history and current functioning. Reviewed vital signs,~Labs/ Radiology~and current medications noted below. Continue current treatment with the changes noted in the dictated addendum note Assessment: Vital Signs: Vital Signs Date Time Temp Pulse Resp B/P (MAP) Pulse Ox O2 Delivery O2 Flow Rate FiO2 01/03/19 20:08 Room Air 01/03/19 16:03 97.6 70 18 115/65 (82) 98 I&O Intake and Output 01/03/19 07:00 Intake Total 1200 ml Balance 1200 ml Intake Oral 1200 ml # Bowel Movements 1 Current Medications: Meds: Current Medications Acetaminophen (Tylenol) 650 mg PRN Q6HRS PRN PO PAIN / TEMP Last administered on 12/30/18 14:14; Start 12/23/18 at 05:30 Multi-Ingredient Ointment (Analgesic [place]) 1 oralia PRN QID PRN TP MUSCLE PAIN Last administered on 12/28/18 06:47; Start 12/23/18 at 05:30 Al Hydroxide/Mg Hydroxide (Mylanta Plus Xs) 15 ml PRN AFTMEALHC PRN PO DYSPEPSIA; Start 12/23/18 at 05:30 Magnesium Hydroxide (Milk Of Magnesia) 2,400 mg PRN QHS PRN PO CONSTIPATION; Start 12/23/18 at 05:30 Diphenhydramine HCl (Benadryl) 25 mg PRN QHS PRN PO INSOMNIA Last administered on 01/03/19 21:54; Start 12/23/18 at 05:30 Lorazepam (Ativan) 1 mg PRN TID PRN PO ANXIETY / AGITATION Last administered on 12/24/18 23:47; Start 12/23/18 at 05:30 Citalopram Hydrobromide (CeleXA) 40 mg DAILY PO Last administered on 12/24/18 07:53; Start 12/23/18 at 09:00; Stop 12/24/18 at 19:07; Status DC Acetaminophen/ Hydrocodone Bitart (Lortab 7.5/325) 1 tab PRN QID PRN PO PAIN Last administered on 2/13/19at 20:08; Start 12/23/18 at 05:30 Aspirin (Children'S Aspirin) 81 mg DAILYWBKFT PO Last administered on 07:59; Start 12/23/18 at 08:00 Atorvastatin Calcium (Lipitor) 40 mg QHS PO Last administered on 01/03/19 20: 09; Start 12/23/18 at 21:00 Atenolol (Tenormin) 100 mg DAILY PO Last administered on 01/03/19 08:00; Start 12/23/18 at 09:00 Lisinopril (Prinivil) 30 mg DAILY PO Last administered on 12/23/18 07:40; Start 12/23/18 at 09:00; Stop 12/23/18 at 13:46; Status DC Pantoprazole Sodium (Protonix) 40 mg DAILYAC PO Last administered on 01/03/19 07:59; Start 12/23/18 at 07:30 Olanzapine (ZyPREXA ZYDIS) 2.5 mg PRN Q2HR PRN PO PSYCHOSIS Last administered on 12/23/18 06:34; Start 12/23/18 at 05:30 Lisinopril (Prinivil) 40 mg DAILY PO Last administered on 01/01/19 08:12; Start 12/24/18 at 09:00; Stop 01/01/19 at 14:27; Status DC Nifedipine (Procardia Xl) 30 mg BID PO Last administered on 01/01/19 08:08; Start 12/23/18 at 21:00; Stop 01/01/19 at 14:27; Status DC Haloperidol (Haldol) 2 mg QHS PO ; Start 12/23/18 at 21:00; Stop 12/23/18 at 21:00 ; Status DC Haloperidol (Haldol) 2 mg QHS PO ; Start 12/23/18 at 21:00; Stop 12/23/18 at 21:00 ; Status DC Haloperidol Lactate (HALDOL 0.5mg ORAL CONC) 2 mg QHS PO Last administered on 20:54; Start 12/23/18 at 21:00; Stop 12/24/18 at 16:22; Status DC Haloperidol Lactate (HALDOL 0.5mg ORAL CONC) 2 mg QHS PO Last administered on 20:16; Start 12/24/18 at 21:00; Stop 12/28/18 at 20:36; Status DC Duloxetine HCl (Cymbalta) 30 mg DAILY PO Last administered on 01/03/19 07:59; Start 12/25/18 at 09:00 Trazodone HCl (Desyrel) 50 mg PRN QHS PRN PO INSOMNIA, MAY REPEAT X1 Last administered on 12/29/18 23:47; Start 12/25/18 at 16:30; Stop 12/30/18 at 19:53; Status DC Throat Lozenges (Cepacol Sore Throat Lozenge) 1 justa PRN Q2HR PRN PO SORE THROAT Last administered on 01/01/19 19:22; Start 12/26/18 at 20:45 Lidocaine (Lidoderm) 1 patch DAILY TD Last administered on 01/03/19 08:00; Start 12/28/18 at 15:00 Miscellaneous (Lidoderm Patch Removal) 1 ea QHS MC Last administered on 20:09; Start 12/28/18 at 21:00 Haloperidol Lactate (HALDOL 10mg ORAL CONC) 2 mg QHS PO Last administered on 20:04; Start 12/28/18 at 21:00; Stop 12/31/18 at 23:36; Status DC Lidocaine (Lidoderm) 1 patch DAILY TD Last administered on 01/03/19 08:01; Start 12/31/18 at 09:00 Miscellaneous (Lidoderm Patch Removal) 1 ea QHS MC Last administered on 20:09; Start 12/30/18 at 21:00 Trazodone HCl (Desyrel) 100 mg QHS PO Last administered on 01/03/19 21:55; Start 12/30/18 at 21:00 Trazodone HCl (Desyrel) 100 mg PRN QHS PRN PO INSOMNIA Last administered on 21:49; Start 12/30/18 at 20:00 Haloperidol Lactate (HALDOL 10mg ORAL CONC) 3 mg QHS PO Last administered on 20:08; Start 01/01/19 at 21:00 Multi-Ingred Cream/Lotion/Oil/ Oint (Hydrocerin) 1 oralia PRN Q1HR PRN TP DRY SKIN / SCALING; Start 01/01/19 at 09:45 Lisinopril (Prinivil) 20 mg DAILY PO Last administered on 01/03/19at 08:00; Start 01/02/19 at 09:00 Active Scripts Active Reported Pantoprazole Sodium 40 Mg Tablet.dr 40 Mg PO DAILY Ativan (Lorazepam) 1 Mg Tablet 1 Mg PO PRN TID PRN Lisinopril 30 Mg Tablet 30 Mg PO DAILY Escitalopram Oxalate 20 Mg Tablet 20 Mg PO DAILY Diphenhydramine Hcl 25 Mg Capsule 25 Mg PO HS PRN Bisoprolol Fumarate 10 Mg Tablet 10 Mg PO DAILY Atorvastatin Calcium 40 Mg Tablet 40 Mg PO DAILY Aspirin 81 Mg Tab.chew 81 Mg PO DAILY Hydrocodone-Apap 7.5-325 (Hydrocodone Bit/Acetaminophen) 1 Each Tablet 1 Tab PO PRN QID PRN I have reviewed the current psychotropics carefully including drug interactions. Risk benefit ratio favors no change other than as noted in my dictated progress note. Diagnosis: Problems: (1) Anxiety disorder (2) Alcoholic psychosis (3) Psychosis, atypical (4) Psychotic depression KATIE MOTA MD Jan 03, 2019 22:12
[2019-01-04 06:04] VITALS: BP 114/58
[2019-01-04] MEDS: PANTOPRAZOLE 40 MG TABLET. PO SCH (07:55)
[2019-01-04] MEDS: LISINOPRIL 20 MG TABLET PO SCH (07:55)
[2019-01-04] MEDS: ASPIRIN 81 MG TAB.CHEW PO SCH (07:55)
[2019-01-04] MEDS: ATENOLOL 50 MG TABLET PO SCH (07:55)
[2019-01-04] MEDS: DULoxetine HCL 30 MG CAPSULE.DR PO SCH (07:55)
[2019-01-04] MEDS: LIDOCAINE (700MG/PATCH) PATCH. TD SCH ×2 (07:56→07:59)
[2019-01-04 16:30] VITALS: BP 119/73
[2019-01-04] MEDS: ATORVASTATIN CALCIUM 20 MG TABLET PO SCH (19:31)
[2019-01-04] MEDS: PATCH REMOVAL. MC SCH ×2 (19:31)
[2019-01-04] MEDS: HALOPERIDOL 10 MG/5 ML ORAL.CONC. PO SCH (19:37)
[2019-01-04] MEDS: diphenhydrAMINE HCL 25 MG CAPSULE PO PRN (21:56)
[2019-01-04] MEDS: HYDROcodone/APAP 7.5/325MG 1 TAB TABLET PO PRN (21:56)
--- NOTE | 2019-01-04 22:34 | PDOC ---
Exam Note: Michael Note: Please also refer to the separate dictated note~for this date of service dictated separately.~Patient seen individually. Discussed the patient with Nursing staff reviewed the chart.~Reviewed interim history and current functioning. Reviewed vital signs,~Labs/ Radiology~and current medications noted below. Continue current treatment with the changes noted in the dictated addendum note Assessment: Vital Signs: Vital Signs Date Time Temp Pulse Resp B/P (MAP) Pulse Ox O2 Delivery O2 Flow Rate FiO2 01/04/19 16:30 97.4 67 20 119/73 (88) 98 01/04/19 06:04 Room Air I&O Intake and Output 01/04/19 06:59 Intake Total 840 ml Balance 840 ml Intake Oral 840 ml Current Medications: Meds: Current Medications Acetaminophen (Tylenol) 650 mg PRN Q6HRS PRN PO PAIN / TEMP Last administered on 12/30/18 14:14; Start 12/23/18 at 05:30 Multi-Ingredient Ointment (Analgesic [place]) 1 oralia PRN QID PRN TP MUSCLE PAIN Last administered on 12/28/18 06:47; Start 12/23/18 at 05:30 Al Hydroxide/Mg Hydroxide (Mylanta Plus Xs) 15 ml PRN AFTMEALHC PRN PO DYSPEPSIA; Start 12/23/18 at 05:30 Magnesium Hydroxide (Milk Of Magnesia) 2,400 mg PRN QHS PRN PO CONSTIPATION; Start 12/23/18 at 05:30 Diphenhydramine HCl (Benadryl) 25 mg PRN QHS PRN PO INSOMNIA Last administered on 01/04/19 21:56; Start 12/23/18 at 05:30 Lorazepam (Ativan) 1 mg PRN TID PRN PO ANXIETY / AGITATION Last administered on 12/24/18 23:47; Start 12/23/18 at 05:30 Citalopram Hydrobromide (CeleXA) 40 mg DAILY PO Last administered on 12/24/18 07:53; Start 12/23/18 at 09:00; Stop 12/24/18 at 19:07; Status DC Acetaminophen/ Hydrocodone Bitart (Lortab 7.5/325) 1 tab PRN QID PRN PO PAIN Last administered on 01/04/19 21:56; Start 12/23/18 at 05:30 Aspirin (Children'S Aspirin) 81 mg DAILYWBKFT PO Last administered on 07:55; Start 12/23/18 at 08:00 Atorvastatin Calcium (Lipitor) 40 mg QHS PO Last administered on 01/04/19 19: 31; Start 12/23/18 at 21:00 Atenolol (Tenormin) 100 mg DAILY PO Last administered on 01/04/19 07:55; Start 12/23/18 at 09:00 Lisinopril (Prinivil) 30 mg DAILY PO Last administered on 12/23/18 07:40; Start 12/23/18 at 09:00; Stop 12/23/18 at 13:46; Status DC Pantoprazole Sodium (Protonix) 40 mg DAILYAC PO Last administered on 01/04/19 07:55; Start 12/23/18 at 07:30 Olanzapine (ZyPREXA ZYDIS) 2.5 mg PRN Q2HR PRN PO PSYCHOSIS Last administered on 12/23/18 06:34; Start 12/23/18 at 05:30 Lisinopril (Prinivil) 40 mg DAILY PO Last administered on 01/01/19 08:12; Start 12/24/18 at 09:00; Stop 01/01/19 at 14:27; Status DC Nifedipine (Procardia Xl) 30 mg BID PO Last administered on 01/01/19 08:08; Start 12/23/18 at 21:00; Stop 01/01/19 at 14:27; Status DC Haloperidol (Haldol) 2 mg QHS PO ; Start 12/23/18 at 21:00; Stop 12/23/18 at 21:00 ; Status DC Haloperidol (Haldol) 2 mg QHS PO ; Start 12/23/18 at 21:00; Stop 12/23/18 at 21:00 ; Status DC Haloperidol Lactate (HALDOL 0.5mg ORAL CONC) 2 mg QHS PO Last administered on 20:54; Start 12/23/18 at 21:00; Stop 12/24/18 at 16:22; Status DC Haloperidol Lactate (HALDOL 0.5mg ORAL CONC) 2 mg QHS PO Last administered on 20:16; Start 12/24/18 at 21:00; Stop 12/28/18 at 20:36; Status DC Duloxetine HCl (Cymbalta) 30 mg DAILY PO Last administered on 01/04/19 07:55; Start 12/25/18 at 09:00 Trazodone HCl (Desyrel) 50 mg PRN QHS PRN PO INSOMNIA, MAY REPEAT X1 Last administered on 12/29/18 23:47; Start 12/25/18 at 16:30; Stop 12/30/18 at 19:53; Status DC Throat Lozenges (Cepacol Sore Throat Lozenge) 1 justa PRN Q2HR PRN PO SORE THROAT Last administered on 01/01/19 19:22; Start 12/26/18 at 20:45 Lidocaine (Lidoderm) 1 patch DAILY TD Last administered on 01/04/19 07:56; Start 12/28/18 at 15:00 Miscellaneous (Lidoderm Patch Removal) 1 ea QHS MC Last administered on 19:31; Start 12/28/18 at 21:00 Haloperidol Lactate (HALDOL 10mg ORAL CONC) 2 mg QHS PO Last administered on 20:04; Start 12/28/18 at 21:00; Stop 12/31/18 at 23:36; Status DC Lidocaine (Lidoderm) 1 patch DAILY TD Last administered on 01/04/19 07:59; Start 12/31/18 at 09:00 Miscellaneous (Lidoderm Patch Removal) 1 ea QHS MC Last administered on 19:31; Start 12/30/18 at 21:00 Trazodone HCl (Desyrel) 100 mg QHS PO Last administered on 01/03/19 21:55; Start 12/30/18 at 21:00 Trazodone HCl (Desyrel) 100 mg PRN QHS PRN PO INSOMNIA Last administered on 21:49; Start 12/30/18 at 20:00 Haloperidol Lactate (HALDOL 10mg ORAL CONC) 3 mg QHS PO Last administered on 19:37; Start 01/01/19 at 21:00 Multi-Ingred Cream/Lotion/Oil/ Oint (Hydrocerin) 1 oralia PRN Q1HR PRN TP DRY SKIN / SCALING; Start 01/01/19 at 09:45 Lisinopril (Prinivil) 20 mg DAILY PO Last administered on 01/04/19at 07:55; Start 01/02/19 at 09:00 Active Scripts Active Reported Pantoprazole Sodium 40 Mg Tablet.dr 40 Mg PO DAILY Ativan (Lorazepam) 1 Mg Tablet 1 Mg PO PRN TID PRN Lisinopril 30 Mg Tablet 30 Mg PO DAILY Escitalopram Oxalate 20 Mg Tablet 20 Mg PO DAILY Diphenhydramine Hcl 25 Mg Capsule 25 Mg PO HS PRN Bisoprolol Fumarate 10 Mg Tablet 10 Mg PO DAILY Atorvastatin Calcium 40 Mg Tablet 40 Mg PO DAILY Aspirin 81 Mg Tab.chew 81 Mg PO DAILY Hydrocodone-Apap 7.5-325 (Hydrocodone Bit/Acetaminophen) 1 Each Tablet 1 Tab PO PRN QID PRN I have reviewed the current psychotropics carefully including drug interactions. Risk benefit ratio favors no change other than as noted in my dictated progress note. Diagnosis: Problems: (1) Anxiety disorder (2) Alcoholic psychosis (3) Psychosis, atypical (4) Psychotic depression KATIE MOTA MD Jan 04, 2019 22:34
[2019-01-05 06:15] VITALS: BP 110/59
[2019-01-05] MEDS: LIDOCAINE (700MG/PATCH) PATCH. TD SCH ×2 (07:57→07:59)
[2019-01-05] MEDS: DULoxetine HCL 30 MG CAPSULE.DR PO SCH (07:58)
[2019-01-05] MEDS: LISINOPRIL 20 MG TABLET PO SCH (07:58)
[2019-01-05] MEDS: ASPIRIN 81 MG TAB.CHEW PO SCH (07:58)
[2019-01-05] MEDS: ATENOLOL 50 MG TABLET PO SCH (07:58)
[2019-01-05] MEDS: PANTOPRAZOLE 40 MG TABLET. PO SCH (07:59)
[2019-01-05 16:33] VITALS: BP 147/69
[2019-01-05] MEDS: PATCH REMOVAL. MC SCH ×2 (19:34)
[2019-01-05] MEDS: ATORVASTATIN CALCIUM 20 MG TABLET PO SCH (19:34)
[2019-01-05] MEDS: diphenhydrAMINE HCL 25 MG CAPSULE PO PRN (19:35)
[2019-01-05] MEDS: traZODone 100 MG TABLET. PO SCH (19:35)
[2019-01-05] MEDS: HALOPERIDOL 10 MG/5 ML ORAL.CONC. PO SCH (19:37)
--- NOTE | 2019-01-05 19:45 | PN ---
DATE: 01/03/2019 PSYCHIATRIC PROGRESS NOTE This late entry 01/03/2019 covers elements not covered in my initial note. This late entry for, covers elements not covered in my initial note. SUBJECTIVE: I met with the patient in the evening. The patient slept 5-1/4 hours previous night. He has had no behaviors previous night and during the day. Somewhat isolative at times, but paranoia is better. No hallucinations noted. Still somewhat dysphoric. REVIEW OF SYSTEMS: No CV, , pulmonary, eye system symptoms on review. Does complain of some scaling of his skin on the forearms. MENTAL STATUS EXAM: Oriented to himself and situation. Speech has some latency, coherent. Abstraction fair, computation impaired, language function intact, attention span fair. Mood and affect still somewhat withdrawn, but improved. LABORATORY DATA: Reviewed. IMPRESSION: Unchanged from initial note. PLAN: No change from initial note. MAN Sheng MOTA MD DR: SPRING/pb JOB#: [id number] / [id number]
--- NOTE | 2019-01-05 19:48 | PN ---
DATE: 01/04/2019 PSYCHIATRIC PROGRESS NOTE This late entry 01/04/2019 covers elements not covered in my initial note. SUBJECTIVE: I met with the patient in the evening and staffed at a treatment team meeting with the entire team earlier in the day. At the treatment team meeting, the patient's , [place], attended the lengthy conference. We discussed the patient's diagnosis, progress, current medications. He is sleeping average of 6-1/2 hours. Does have a lidocaine patch for his chronic pain as before. Complains of scaling of his skin on the forearms, but no CV, , pulmonary, eye system symptoms on review. Reviewed his history, diagnosis, medications at length with his . is keen for us to let the patient know that she should keep and administer his psychotropics at home post-discharge and we will do this. I also asked the to arrange outpatient followup at the local mental health center post-discharge including psychotherapy and medication management. MENTAL STATUS EXAM: Oriented to himself and situation. Speech is coherent, has some latency. Abstraction fair, computation impaired, language function intact, attention span short. Mood and affect still somewhat withdrawn, but much improved and much more verbal, interactive as I met with him in the evening. LABORATORY DATA: Reviewed. IMPRESSION: Unchanged from initial note. PLAN: No change from initial note. KATIE MOTA MD DR: SPRING/pb JOB#: [id number] / [id number]
[2019-01-05] MEDS: HYDROcodone/APAP 7.5/325MG 1 TAB TABLET PO PRN (20:02)
--- NOTE | 2019-01-05 22:33 | PDOC ---
Exam Note: Michael Note: Please also refer to the separate dictated note~for this date of service dictated separately.~Patient seen individually. Discussed the patient with Nursing staff reviewed the chart.~Reviewed interim history and current functioning. Reviewed vital signs,~Labs/ Radiology~and current medications noted below. Continue current treatment with the changes noted in the dictated addendum note Assessment: Vital Signs: Vital Signs Date Time Temp Pulse Resp B/P (MAP) Pulse Ox O2 Delivery O2 Flow Rate FiO2 01/05/19 21:02 97 01/05/19 16:33 97.0 68 20 147/69 (95) Room Air I&O Intake and Output 01/05/19 07:00 Intake Total 840 ml Balance 840 ml Intake Oral 840 ml Current Medications: Meds: Current Medications Acetaminophen (Tylenol) 650 mg PRN Q6HRS PRN PO PAIN / TEMP Last administered on 12/30/18 14:14; Start 12/23/18 at 05:30 Multi-Ingredient Ointment (Analgesic [place]) 1 oralia PRN QID PRN TP MUSCLE PAIN Last administered on 12/28/18 06:47; Start 12/23/18 at 05:30 Al Hydroxide/Mg Hydroxide (Mylanta Plus Xs) 15 ml PRN AFTMEALHC PRN PO DYSPEPSIA; Start 12/23/18 at 05:30 Magnesium Hydroxide (Milk Of Magnesia) 2,400 mg PRN QHS PRN PO CONSTIPATION; Start 12/23/18 at 05:30 Diphenhydramine HCl (Benadryl) 25 mg PRN QHS PRN PO INSOMNIA Last administered on 01/05/19 19:35; Start 12/23/18 at 05:30 Lorazepam (Ativan) 1 mg PRN TID PRN PO ANXIETY / AGITATION Last administered on 12/24/18 23:47; Start 12/23/18 at 05:30 Citalopram Hydrobromide (CeleXA) 40 mg DAILY PO Last administered on 12/24/18 07:53; Start 12/23/18 at 09:00; Stop 12/24/18 at 19:07; Status DC Acetaminophen/ Hydrocodone Bitart (Lortab 7.5/325) 1 tab PRN QID PRN PO PAIN Last administered on 01/05/19 20:02; Start 12/23/18 at 05:30 Aspirin (Children'S Aspirin) 81 mg DAILYWBKFT PO Last administered on 07:58; Start 12/23/18 at 08:00 Atorvastatin Calcium (Lipitor) 40 mg QHS PO Last administered on 01/05/19 19: 34; Start 12/23/18 at 21:00 Atenolol (Tenormin) 100 mg DAILY PO Last administered on 01/05/19 07:58; Start 12/23/18 at 09:00 Lisinopril (Prinivil) 30 mg DAILY PO Last administered on 12/23/18 07:40; Start 12/23/18 at 09:00; Stop 12/23/18 at 13:46; Status DC Pantoprazole Sodium (Protonix) 40 mg DAILYAC PO Last administered on 01/05/19 07:59; Start 12/23/18 at 07:30 Olanzapine (ZyPREXA ZYDIS) 2.5 mg PRN Q2HR PRN PO PSYCHOSIS Last administered on 12/23/18 06:34; Start 12/23/18 at 05:30 Lisinopril (Prinivil) 40 mg DAILY PO Last administered on 01/01/19 08:12; Start 12/24/18 at 09:00; Stop 01/01/19 at 14:27; Status DC Nifedipine (Procardia Xl) 30 mg BID PO Last administered on 01/01/19 08:08; Start 12/23/18 at 21:00; Stop 01/01/19 at 14:27; Status DC Haloperidol (Haldol) 2 mg QHS PO ; Start 12/23/18 at 21:00; Stop 12/23/18 at 21:00 ; Status DC Haloperidol (Haldol) 2 mg QHS PO ; Start 12/23/18 at 21:00; Stop 12/23/18 at 21:00 ; Status DC Haloperidol Lactate (HALDOL 0.5mg ORAL CONC) 2 mg QHS PO Last administered on 20:54; Start 12/23/18 at 21:00; Stop 12/24/18 at 16:22; Status DC Haloperidol Lactate (HALDOL 0.5mg ORAL CONC) 2 mg QHS PO Last administered on 20:16; Start 12/24/18 at 21:00; Stop 12/28/18 at 20:36; Status DC Duloxetine HCl (Cymbalta) 30 mg DAILY PO Last administered on 01/05/19 07:58; Start 12/25/18 at 09:00 Trazodone HCl (Desyrel) 50 mg PRN QHS PRN PO INSOMNIA, MAY REPEAT X1 Last administered on 12/29/18 23:47; Start 12/25/18 at 16:30; Stop 12/30/18 at 19:53; Status DC Throat Lozenges (Cepacol Sore Throat Lozenge) 1 justa PRN Q2HR PRN PO SORE THROAT Last administered on 01/01/19 19:22; Start 12/26/18 at 20:45 Lidocaine (Lidoderm) 1 patch DAILY TD Last administered on 01/05/19 07:57; Start 12/28/18 at 15:00 Miscellaneous (Lidoderm Patch Removal) 1 ea QHS MC Last administered on 19:34; Start 12/28/18 at 21:00 Haloperidol Lactate (HALDOL 10mg ORAL CONC) 2 mg QHS PO Last administered on 20:04; Start 12/28/18 at 21:00; Stop 12/31/18 at 23:36; Status DC Lidocaine (Lidoderm) 1 patch DAILY TD Last administered on 01/05/19 07:59; Start 12/31/18 at 09:00 Miscellaneous (Lidoderm Patch Removal) 1 ea QHS MC Last administered on 19:34; Start 12/30/18 at 21:00 Trazodone HCl (Desyrel) 100 mg QHS PO Last administered on 01/05/19 19:35; Start 12/30/18 at 21:00 Trazodone HCl (Desyrel) 100 mg PRN QHS PRN PO INSOMNIA Last administered on 21:49; Start 12/30/18 at 20:00 Haloperidol Lactate (HALDOL 10mg ORAL CONC) 3 mg QHS PO Last administered on 19:37; Start 01/01/19 at 21:00 Multi-Ingred Cream/Lotion/Oil/ Oint (Hydrocerin) 1 oralia PRN Q1HR PRN TP DRY SKIN / SCALING; Start 01/01/19 at 09:45 Lisinopril (Prinivil) 20 mg DAILY PO Last administered on 01/05/19at 07:58; Start 01/02/19 at 09:00 Vitamin D (Vitamin D3) 50,000 unit WEEKLY PO ; Start 01/06/19 at 09:00 Active Scripts Active Reported Pantoprazole Sodium 40 Mg Tablet.dr 40 Mg PO DAILY Ativan (Lorazepam) 1 Mg Tablet 1 Mg PO PRN TID PRN Lisinopril 30 Mg Tablet 30 Mg PO DAILY Escitalopram Oxalate 20 Mg Tablet 20 Mg PO DAILY Diphenhydramine Hcl 25 Mg Capsule 25 Mg PO HS PRN Bisoprolol Fumarate 10 Mg Tablet 10 Mg PO DAILY Atorvastatin Calcium 40 Mg Tablet 40 Mg PO DAILY Aspirin 81 Mg Tab.chew 81 Mg PO DAILY Hydrocodone-Apap 7.5-325 (Hydrocodone Bit/Acetaminophen) 1 Each Tablet 1 Tab PO PRN QID PRN I have reviewed the current psychotropics carefully including drug interactions. Risk benefit ratio favors no change other than as noted in my dictated progress note. Diagnosis: Problems: (1) Anxiety disorder (2) Alcoholic psychosis (3) Psychosis, atypical (4) Psychotic depression KATIE MOTA MD Jan 05, 2019 22:33
[2019-01-06 06:41] VITALS: BP 101/55
[2019-01-06] MEDS: DULoxetine HCL 30 MG CAPSULE.DR PO SCH (08:12)
[2019-01-06] MEDS: PANTOPRAZOLE 40 MG TABLET. PO SCH (08:12)
[2019-01-06] MEDS: ASPIRIN 81 MG TAB.CHEW PO SCH (08:12)
[2019-01-06] MEDS: ATENOLOL 50 MG TABLET PO SCH (08:13)
[2019-01-06] MEDS: LISINOPRIL 20 MG TABLET PO SCH (08:13)
[2019-01-06] MEDS: LIDOCAINE (700MG/PATCH) PATCH. TD SCH ×2 (08:14)
[2019-01-06] MEDS ORDERED: CHOLECALCIFEROL (VITAMIN D3) 50,000 UNIT CAPSULE PO SCH (09:00)
[2019-01-06 10:56] LABS: BASO # 0.1 x10^3/uL (0.0-0.2); BASO % 1 % (0-3); EOS # 0.3 x10^3/uL (0.0-0.7); EOS % 5 % (0-3); HEMATOCRIT 38.5 % (39.0-53.0); HEMOGLOBIN 13.2 g/dL (13.0-17.5); LYMPH % 17 % (24-48); MEAN CORPUSCULAR HEMOGLOBIN 33 pg (25-35); MEAN CORPUSCULAR HGB CONC 34 g/dL (31-37); MEAN CORPUSCULAR VOLUME 96 fL (79-100); MONO # 0.7 x10^3/uL (0.0-1.1); MONO % 12 % (0-9); NEUT % 65 % (31-73); PLATELET COUNT 272 x10^3/uL (140-400); RED CELL DISTRIBUTION WIDTH 12.5 % (11.5-14.5); WHITE BLOOD COUNT 6.2 x10^3/uL (4.0-11.0)
[2019-01-06 11:10] LABS: ALBUMIN 3.1 g/dL (3.4-5.0); CALCIUM 8.8 mg/dL (8.5-10.1); CREATININE 0.9 mg/dL (0.7-1.3); POTASSIUM 4.4 mmol/L (3.5-5.1); TOTAL BILIRUBIN 0.3 mg/dL (0.2-1.0); TOTAL PROTEIN 6.2 g/dL (6.4-8.2)
[2019-01-06 16:02] VITALS: BP 147/70
[2019-01-06] MEDS: PATCH REMOVAL. MC SCH ×2 (19:42)
[2019-01-06] MEDS: traZODone 100 MG TABLET. PO SCH (19:46)
[2019-01-06] MEDS: ATORVASTATIN CALCIUM 20 MG TABLET PO SCH (19:46)
[2019-01-06] MEDS: HALOPERIDOL 10 MG/5 ML ORAL.CONC. PO SCH (19:47)
[2019-01-06] MEDS: HYDROcodone/APAP 7.5/325MG 1 TAB TABLET PO PRN (19:49)
[2019-01-06] MEDS: diphenhydrAMINE HCL 25 MG CAPSULE PO PRN (19:49)
--- NOTE | 2019-01-06 21:47 | PDOC ---
Exam Note: Michael Note: Please also refer to the separate dictated note~for this date of service dictated separately.~Patient seen individually. Discussed the patient with Nursing staff reviewed the chart.~Reviewed interim history and current functioning. Reviewed vital signs,~Labs/ Radiology~and current medications noted below. Continue current treatment with the changes noted in the dictated addendum note Assessment: Vital Signs: Vital Signs Date Time Temp Pulse Resp B/P (MAP) Pulse Ox O2 Delivery O2 Flow Rate FiO2 01/06/19 20:49 96 01/06/19 16:02 98.1 77 20 147/70 (95) 01/05/19 16:33 Room Air I&O Intake and Output 01/06/19 07:00 Intake Total 725 ml Balance 725 ml Intake Oral 725 ml Labs: Laboratory Tests Test 01/06/19 10:42 White Blood Count 6.2 x10^3/uL (4.0-11.0) Red Blood Count 4.00 x10^6/uL (4.30-5.70) L Hemoglobin 13.2 g/dL (13.0-17.5) Hematocrit 38.5 % (39.0-53.0) L Mean Corpuscular Volume 96 fL (79-100) Mean Corpuscular Hemoglobin 33 pg (25-35) Mean Corpuscular Hemoglobin Concent 34 g/dL (31-37) Red Cell Distribution Width 12.5 % (11.5-14.5) Platelet Count 272 x10^3/uL (140-400) Neutrophils (%) (Auto) 65 % (31-73) Lymphocytes (%) (Auto) 17 % (24-48) L Monocytes (%) (Auto) 12 % (0-9) H Eosinophils (%) (Auto) 5 % (0-3) H Basophils (%) (Auto) 1 % (0-3) Neutrophils # (Auto) 4.0 x10^3uL (1.8-7.7) Lymphocytes # (Auto) 1.0 x10^3/uL (1.0-4.8) Monocytes # (Auto) 0.7 x10^3/uL (0.0-1.1) Eosinophils # (Auto) 0.3 x10^3/uL (0.0-0.7) Basophils # (Auto) 0.1 x10^3/uL (0.0-0.2) Sodium Level 142 mmol/L (136-145) Potassium Level 4.4 mmol/L (3.5-5.1) Chloride Level 105 mmol/L (98-107) Carbon Dioxide Level 30 mmol/L (21-32) Anion Gap 7 (6-14) Blood Urea Nitrogen 21 mg/dL (8-26) Creatinine 0.9 mg/dL (0.7-1.3) Estimated GFR (Cockcroft-Gault) 81.0 BUN/Creatinine Ratio 23 (6-20) H Glucose Level 119 mg/dL (70-99) H Calcium Level 8.8 mg/dL (8.5-10.1) Total Bilirubin 0.3 mg/dL (0.2-1.0) Aspartate Amino Transferase (AST) 13 U/L (15-37) L Alanine Aminotransferase (ALT) 24 U/L (16-63) Alkaline Phosphatase 75 U/L (46-116) Total Protein 6.2 g/dL (6.4-8.2) L Albumin 3.1 g/dL (3.4-5.0) L Albumin/Globulin Ratio 1.0 (1.0-1.7) Current Medications: Meds: Current Medications Acetaminophen (Tylenol) 650 mg PRN Q6HRS PRN PO PAIN / TEMP Last administered on 12/30/18 14:14; Start 12/23/18 at 05:30 Multi-Ingredient Ointment (Analgesic [place]) 1 oralia PRN QID PRN TP MUSCLE PAIN Last administered on 12/28/18 06:47; Start 12/23/18 at 05:30 Al Hydroxide/Mg Hydroxide (Mylanta Plus Xs) 15 ml PRN AFTMEALHC PRN PO DYSPEPSIA; Start 12/23/18 at 05:30 Magnesium Hydroxide (Milk Of Magnesia) 2,400 mg PRN QHS PRN PO CONSTIPATION; Start 12/23/18 at 05:30 Diphenhydramine HCl (Benadryl) 25 mg PRN QHS PRN PO INSOMNIA Last administered on 01/06/19 19:49; Start 12/23/18 at 05:30 Lorazepam (Ativan) 1 mg PRN TID PRN PO ANXIETY / AGITATION Last administered on 12/24/18 23:47; Start 12/23/18 at 05:30 Citalopram Hydrobromide (CeleXA) 40 mg DAILY PO Last administered on 12/24/18 07:53; Start 12/23/18 at 09:00; Stop 12/24/18 at 19:07; Status DC Acetaminophen/ Hydrocodone Bitart (Lortab 7.5/325) 1 tab PRN QID PRN PO PAIN Last administered on 01/06/19 19:49; Start 12/23/18 at 05:30 Aspirin (Children'S Aspirin) 81 mg DAILYWBKFT PO Last administered on 08:12; Start 12/23/18 at 08:00 Atorvastatin Calcium (Lipitor) 40 mg QHS PO Last administered on 01/06/19 19: 46; Start 12/23/18 at 21:00 Atenolol (Tenormin) 100 mg DAILY PO Last administered on 01/05/19 07:58; Start 12/23/18 at 09:00 Lisinopril (Prinivil) 30 mg DAILY PO Last administered on 12/23/18 07:40; Start 12/23/18 at 09:00; Stop 12/23/18 at 13:46; Status DC Pantoprazole Sodium (Protonix) 40 mg DAILYAC PO Last administered on 01/06/19 08:12; Start 12/23/18 at 07:30 Olanzapine (ZyPREXA ZYDIS) 2.5 mg PRN Q2HR PRN PO PSYCHOSIS Last administered on 12/23/18 06:34; Start 12/23/18 at 05:30 Lisinopril (Prinivil) 40 mg DAILY PO Last administered on 01/01/19 08:12; Start 12/24/18 at 09:00; Stop 01/01/19 at 14:27; Status DC Nifedipine (Procardia Xl) 30 mg BID PO Last administered on 01/01/19 08:08; Start 12/23/18 at 21:00; Stop 01/01/19 at 14:27; Status DC Haloperidol (Haldol) 2 mg QHS PO ; Start 12/23/18 at 21:00; Stop 12/23/18 at 21:00 ; Status DC Haloperidol (Haldol) 2 mg QHS PO ; Start 12/23/18 at 21:00; Stop 12/23/18 at 21:00 ; Status DC Haloperidol Lactate (HALDOL 0.5mg ORAL CONC) 2 mg QHS PO Last administered on 20:54; Start 12/23/18 at 21:00; Stop 12/24/18 at 16:22; Status DC Haloperidol Lactate (HALDOL 0.5mg ORAL CONC) 2 mg QHS PO Last administered on 20:16; Start 12/24/18 at 21:00; Stop 12/28/18 at 20:36; Status DC Duloxetine HCl (Cymbalta) 30 mg DAILY PO Last administered on 01/06/19 08:12; Start 12/25/18 at 09:00 Trazodone HCl (Desyrel) 50 mg PRN QHS PRN PO INSOMNIA, MAY REPEAT X1 Last administered on 12/29/18 23:47; Start 12/25/18 at 16:30; Stop 12/30/18 at 19:53; Status DC Throat Lozenges (Cepacol Sore Throat Lozenge) 1 justa PRN Q2HR PRN PO SORE THROAT Last administered on 01/01/19 19:22; Start 12/26/18 at 20:45 Lidocaine (Lidoderm) 1 patch DAILY TD Last administered on 01/06/19 08:14; Start 12/28/18 at 15:00 Miscellaneous (Lidoderm Patch Removal) 1 ea QHS MC Last administered on 19:42; Start 12/28/18 at 21:00 Haloperidol Lactate (HALDOL 10mg ORAL CONC) 2 mg QHS PO Last administered on 20:04; Start 12/28/18 at 21:00; Stop 12/31/18 at 23:36; Status DC Lidocaine (Lidoderm) 1 patch DAILY TD Last administered on 01/06/19 08:14; Start 12/31/18 at 09:00 Miscellaneous (Lidoderm Patch Removal) 1 ea QHS MC Last administered on 19:42; Start 12/30/18 at 21:00 Trazodone HCl (Desyrel) 100 mg QHS PO Last administered on 2/16/19at 19:46; Start 12/30/18 at 21:00 Trazodone HCl (Desyrel) 100 mg PRN QHS PRN PO INSOMNIA Last administered on 09/08at 21:49; Start 12/30/18 at 20:00 Haloperidol Lactate (HALDOL 10mg ORAL CONC) 3 mg QHS PO Last administered on at 19:47; Start 01/01/19 at 21:00 Multi-Ingred Cream/Lotion/Oil/ Oint (Hydrocerin) 1 oralai PRN Q1HR PRN TP DRY SKIN / SCALING; Start 01/01/19 at 09:45 Lisinopril (Prinivil) 20 mg DAILY PO Last administered on 01/05/19at 07:58; Start 01/02/19 at 09:00 Vitamin D (Vitamin D3) 50,000 unit WEEKLY PO Last administered on 01/06/19at 08: 15; Start 01/06/19 at 09:00 Active Scripts Active Reported Pantoprazole Sodium 40 Mg Tablet.dr 40 Mg PO DAILY Ativan (Lorazepam) 1 Mg Tablet 1 Mg PO PRN TID PRN Lisinopril 30 Mg Tablet 30 Mg PO DAILY Escitalopram Oxalate 20 Mg Tablet 20 Mg PO DAILY Diphenhydramine Hcl 25 Mg Capsule 25 Mg PO HS PRN Bisoprolol Fumarate 10 Mg Tablet 10 Mg PO DAILY Atorvastatin Calcium 40 Mg Tablet 40 Mg PO DAILY Aspirin 81 Mg Tab.chew 81 Mg PO DAILY Hydrocodone-Apap 7.5-325 (Hydrocodone Bit/Acetaminophen) 1 Each Tablet 1 Tab PO PRN QID PRN I have reviewed the current psychotropics carefully including drug interactions. Risk benefit ratio favors no change other than as noted in my dictated progress note. Diagnosis: Problems: (1) Anxiety disorder (2) Alcoholic psychosis (3) Psychosis, atypical (4) Psychotic depression KATIE MOTA MD Jan 06, 2019 21:47
[2019-01-06] MEDS: traZODone 100 MG TABLET. PO PRN (22:41)
[2019-01-07] MEDS ORDERED: ACET325T21 PO (00:08)
[2019-01-07] MEDS ORDERED: BENZ1LOZ48 MM (00:09)
[2019-01-07] MEDS ORDERED: CHOL500021 PO (00:10)
[2019-01-07] MEDS ORDERED: DULO30CA2 PO (00:11)
[2019-01-07] MEDS ORDERED: HALO2TAB PO (00:13)
[2019-01-07] MEDS ORDERED: LIDO700A39 TD ×2 (00:14→00:16)
[2019-01-07] MEDS ORDERED: LISI-334 PO (00:16)
[2019-01-07] MEDS ORDERED: MAG355OR17 PO (00:16)
[2019-01-07] MEDS ORDERED: MAGN2400 PO (00:17)
[2019-01-07] MEDS ORDERED: METH29OI TP (00:17)
[2019-01-07] MEDS ORDERED: OLAN5TAB5 PO (00:20)
[2019-01-07] MEDS ORDERED: REMOVAL MC ×2 (00:21→00:22)
[2019-01-07] MEDS ORDERED: TRAZ-86 PO ×2 (00:22→00:23)
[2019-01-07] MEDS ORDERED: GLYC113C2 TP (00:29)
[2019-01-07 05:47] VITALS: BP 121/67
[2019-01-07] MEDS: ATENOLOL 50 MG TABLET PO SCH (08:04)
[2019-01-07] MEDS: PANTOPRAZOLE 40 MG TABLET. PO SCH (08:04)
[2019-01-07] MEDS: DULoxetine HCL 30 MG CAPSULE.DR PO SCH (08:04)
[2019-01-07] MEDS: ASPIRIN 81 MG TAB.CHEW PO SCH (08:04)
[2019-01-07] MEDS: LIDOCAINE (700MG/PATCH) PATCH. TD SCH ×2 (08:04→08:05)
[2019-01-07] MEDS: LISINOPRIL 20 MG TABLET PO SCH (08:05)
[2019-01-07 16:07] VITALS: BP 90/55
[2019-01-07] MEDS: PATCH REMOVAL. MC SCH ×2 (19:15)
[2019-01-07] MEDS: traZODone 100 MG TABLET. PO SCH (19:15)
[2019-01-07] MEDS: ATORVASTATIN CALCIUM 20 MG TABLET PO SCH (19:15)
[2019-01-07] MEDS: HALOPERIDOL 10 MG/5 ML ORAL.CONC. PO SCH (19:16)
--- NOTE | 2019-01-07 21:08 | PN ---
DATE: 01/05/2019 PSYCHIATRIC PROGRESS NOTE This late entry 01/05/2019 covers elements not covered in my initial note. SUBJECTIVE: I met with the patient in the evening. The patient slept 6 hours previous night. He does complain of some back pain, has a lidocaine patch, but otherwise appropriate. No suicidal ideation. REVIEW OF SYSTEMS: Ambulation reasonable, slightly unsteady in his gait. No CV, , pulmonary, eye system symptoms on review, slightly hard of hearing. MENTAL STATUS EXAM: Oriented to himself and situation. Speech is coherent, has some latency. Abstraction fair, computation impaired, language function intact, attention span short. Mood and affect somewhat withdrawn. LABORATORY DATA: Reviewed. IMPRESSION: Unchanged from initial note. PLAN: No change from initial note. MAN Sheng MOTA MD DR: SPRING/pb JOB#: [id number] / [id number]
--- NOTE | 2019-01-07 21:11 | PN ---
DATE: 01/06/2019 PSYCHIATRIC PROGRESS NOTE This late entry 01/06/2019 covers elements not covered in my initial note. SUBJECTIVE: I met with the patient in the evening. The patient slept 6-1/4 hours previous night. Overall, he has been appropriate, somewhat withdrawn at times. REVIEW OF SYSTEMS: No CV, , pulmonary, eye system symptoms on review. MENTAL STATUS EXAM: Oriented to himself and situation. Speech coherent, abstraction fair, computation impaired, language function intact. Mood and affect is improved. LABORATORY DATA: Reviewed. IMPRESSION: Unchanged from initial note. PLAN: No change from initial note. MAN Sheng MOTA MD DR: SPRING/pb JOB#: [id number] / [id number]
--- NOTE | 2019-01-07 22:32 | PDOC ---
Exam Note: Michael Note: Please also refer to the separate dictated note~for this date of service dictated separately.~Patient seen individually. Discussed the patient with Nursing staff reviewed the chart.~Reviewed interim history and current functioning. Reviewed vital signs,~Labs/ Radiology~and current medications noted below. Continue current treatment with the changes noted in the dictated addendum note Assessment: Vital Signs: Vital Signs Date Time Temp Pulse Resp B/P (MAP) Pulse Ox O2 Delivery O2 Flow Rate FiO2 01/07/19 16:07 97.4 68 18 90/55 (67) 99 01/05/19 16:33 Room Air I&O Intake and Output 01/07/19 07:00 Intake Total 1080 ml Balance 1080 ml Intake Oral 1080 ml Current Medications: Meds: Current Medications Acetaminophen (Tylenol) 650 mg PRN Q6HRS PRN PO PAIN / TEMP Last administered on 12/30/18 14:14; Start 12/23/18 at 05:30 Multi-Ingredient Ointment (Analgesic [place]) 1 patricia PRN QID PRN TP MUSCLE PAIN Last administered on 12/28/18 06:47; Start 12/23/18 at 05:30 Al Hydroxide/Mg Hydroxide (Mylanta Plus Xs) 15 ml PRN AFTMEALHC PRN PO DYSPEPSIA; Start 12/23/18 at 05:30 Magnesium Hydroxide (Milk Of Magnesia) 2,400 mg PRN QHS PRN PO CONSTIPATION; Start 12/23/18 at 05:30 Diphenhydramine HCl (Benadryl) 25 mg PRN QHS PRN PO INSOMNIA Last administered on 01/06/19 19:49; Start 12/23/18 at 05:30 Lorazepam (Ativan) 1 mg PRN TID PRN PO ANXIETY / AGITATION Last administered on 12/24/18 23:47; Start 12/23/18 at 05:30 Citalopram Hydrobromide (CeleXA) 40 mg DAILY PO Last administered on 12/24/18 07:53; Start 12/23/18 at 09:00; Stop 12/24/18 at 19:07; Status DC Acetaminophen/ Hydrocodone Bitart (Lortab 7.5/325) 1 tab PRN QID PRN PO PAIN Last administered on 01/06/19 19:49; Start 12/23/18 at 05:30 Aspirin (Children'S Aspirin) 81 mg DAILYWBKFT PO Last administered on 08:04; Start 12/23/18 at 08:00 Atorvastatin Calcium (Lipitor) 40 mg QHS PO Last administered on 01/07/19at 19: 15; Start 12/23/18 at 21:00 Atenolol (Tenormin) 100 mg DAILY PO Last administered on 01/07/19 08:04; Start 12/23/18 at 09:00 Lisinopril (Prinivil) 30 mg DAILY PO Last administered on 12/23/18 07:40; Start 12/23/18 at 09:00; Stop 12/23/18 at 13:46; Status DC Pantoprazole Sodium (Protonix) 40 mg DAILYAC PO Last administered on 01/07/19 08:04; Start 12/23/18 at 07:30 Olanzapine (ZyPREXA ZYDIS) 2.5 mg PRN Q2HR PRN PO PSYCHOSIS Last administered on 12/23/18 06:34; Start 12/23/18 at 05:30 Lisinopril (Prinivil) 40 mg DAILY PO Last administered on 01/01/19 08:12; Start 12/24/18 at 09:00; Stop 01/01/19 at 14:27; Status DC Nifedipine (Procardia Xl) 30 mg BID PO Last administered on 01/01/19 08:08; Start 12/23/18 at 21:00; Stop 01/01/19 at 14:27; Status DC Haloperidol (Haldol) 2 mg QHS PO ; Start 12/23/18 at 21:00; Stop 12/23/18 at 21:00 ; Status DC Haloperidol (Haldol) 2 mg QHS PO ; Start 12/23/18 at 21:00; Stop 12/23/18 at 21:00 ; Status DC Haloperidol Lactate (HALDOL 0.5mg ORAL CONC) 2 mg QHS PO Last administered on 20:54; Start 12/23/18 at 21:00; Stop 12/24/18 at 16:22; Status DC Haloperidol Lactate (HALDOL 0.5mg ORAL CONC) 2 mg QHS PO Last administered on 2 /6/19at 20:16; Start 12/24/18 at 21:00; Stop 12/28/18 at 20:36; Status DC Duloxetine HCl (Cymbalta) 30 mg DAILY PO Last administered on 01/07/19 08:04; Start 12/25/18 at 09:00 Trazodone HCl (Desyrel) 50 mg PRN QHS PRN PO INSOMNIA, MAY REPEAT X1 Last administered on 12/29/18 23:47; Start 12/25/18 at 16:30; Stop 12/30/18 at 19:53; Status DC Throat Lozenges (Cepacol Sore Throat Lozenge) 1 justa PRN Q2HR PRN PO SORE THROAT Last administered on 01/01/19 19:22; Start 12/26/18 at 20:45 Lidocaine (Lidoderm) 1 patch DAILY TD Last administered on 01/07/19 08:04; Start 12/28/18 at 15:00 Miscellaneous (Lidoderm Patch Removal) 1 ea QHS MC Last administered on 19:15; Start 12/28/18 at 21:00 Haloperidol Lactate (HALDOL 10mg ORAL CONC) 2 mg QHS PO Last administered on 20:04; Start 12/28/18 at 21:00; Stop 12/31/18 at 23:36; Status DC Lidocaine (Lidoderm) 1 patch DAILY TD Last administered on 01/07/19 08:05; Start 12/31/18 at 09:00 Miscellaneous (Lidoderm Patch Removal) 1 ea QHS MC Last administered on 19:15; Start 12/30/18 at 21:00 Trazodone HCl (Desyrel) 100 mg QHS PO Last administered on 01/07/19 19:15; Start 12/30/18 at 21:00 Trazodone HCl (Desyrel) 100 mg PRN QHS PRN PO INSOMNIA Last administered on 22:41; Start 12/30/18 at 20:00 Haloperidol Lactate (HALDOL 10mg ORAL CONC) 3 mg QHS PO Last administered on 19:16; Start 01/01/19 at 21:00 Multi-Ingred Cream/Lotion/Oil/ Oint (Hydrocerin) 1 patricia PRN Q1HR PRN TP DRY SKIN / SCALING; Start 01/01/19 at 09:45 Lisinopril (Prinivil) 20 mg DAILY PO Last administered on 01/07/19at 08:05; Start 01/02/19 at 09:00 Vitamin D (Vitamin D3) 50,000 unit WEEKLY PO Last administered on 01/06/19at 08: 15; Start 01/06/19 at 09:00 Active Scripts Active Reported Eucerin Intensive Repair Crm (Glycerin/Lanolin/Mineral Oil) 113 Gm Cream..g. 1 Patricia TP PRN Q1HR Trazodone Hcl 100 Mg Tablet 100 Mg PO PRN QHS PRN Trazodone Hcl 100 Mg Tablet 100 Mg PO HS [[Patch Removal]] 1 Ea MC QHS [[Patch Removal]] 1 Each MC QHS Zyprexa Zydis (Olanzapine) 5 Mg Tab.rapdis 2.5 Mg PO PRN Q2HR PRN Analgesic [place] (Methyl Salicylate/Menthol) 28 Gm Oint...g. 1 Patricia TP PRN QID PRN Milk Of Magnesia (Magnesium Hydroxide) 2,400 Mg/10 Ml Oral.susp 2,400 Mg PO PRN QHS PRN Advanced Antacid Liquid (Mag Hydrox/Al Hydrox/Simeth) 355 Ml Oral.susp 15 Ml PO PRN AFTMEALHC PRN Lisinopril 20 Mg Tablet 20 Mg PO DAILY Lidocaine 1 Each Adh..patch 1 Patch TD DAILY Lidocaine 1 Each Adh..patch 1 Patch TD DAILY Haloperidol 2 Mg Tablet 3 Mg PO HS Cymbalta (Duloxetine Hcl) 30 Mg Capsule.dr 30 Mg PO DAILY D3-50 (Cholecalciferol (Vitamin D3)) 50,000 Unit Capsule 50,000 Unit PO QSA Cepacol Sore Throat Lozenge (Benzocaine/Menthol) 1 Each Lozenge 1 Justa MM PRN Q2HR PRN Acetaminophen 325 Mg Tablet 650 Mg PO PRN Q6HRS PRN Pantoprazole Sodium 40 Mg Tablet.dr 40 Mg PO DAILY Ativan (Lorazepam) 1 Mg Tablet 1 Mg PO PRN TID PRN Lisinopril 30 Mg Tablet 30 Mg PO DAILY Escitalopram Oxalate 20 Mg Tablet 20 Mg PO DAILY Diphenhydramine Hcl 25 Mg Capsule 25 Mg PO HS PRN Bisoprolol Fumarate 10 Mg Tablet 10 Mg PO DAILY Atorvastatin Calcium 40 Mg Tablet 40 Mg PO DAILY Aspirin 81 Mg Tab.chew 81 Mg PO DAILY Hydrocodone-Apap 7.5-325 (Hydrocodone Bit/Acetaminophen) 1 Each Tablet 1 Tab PO PRN QID PRN I have reviewed the current psychotropics carefully including drug interactions. Risk benefit ratio favors no change other than as noted in my dictated progress note. Diagnosis: Problems: (1) Anxiety disorder (2) Alcoholic psychosis (3) Psychosis, atypical (4) Psychotic depression KATIE MOTA MD Jan 07, 2019 22:32
[2019-01-08 06:09] VITALS: BP 119/47
[2019-01-08] MEDS: DULoxetine HCL 30 MG CAPSULE.DR PO SCH (08:20)
[2019-01-08] MEDS: ASPIRIN 81 MG TAB.CHEW PO SCH (08:21)
[2019-01-08] MEDS: ATENOLOL 50 MG TABLET PO SCH (08:21)
[2019-01-08] MEDS: PANTOPRAZOLE 40 MG TABLET. PO SCH (08:21)
[2019-01-08 08:22] VITALS: BP 119/47
[2019-01-08] MEDS: LISINOPRIL 20 MG TABLET PO SCH (08:22)
[2019-01-08] MEDS: LIDOCAINE (700MG/PATCH) PATCH. TD SCH ×2 (08:24)
--- NOTE | 2019-01-08 22:18 | PDOC ---
Exam Note: Michael Note: Please also refer to the separate dictated note~for this date of service dictated separately.~Patient seen individually. Discussed the patient with Nursing staff reviewed the chart.~Reviewed interim history and current functioning. Reviewed vital signs,~Labs/ Radiology~and current medications noted below. Continue current treatment with the changes noted in the dictated addendum note Assessment: Vital Signs: Vital Signs Date Time Temp Pulse Resp B/P (MAP) Pulse Ox O2 Delivery O2 Flow Rate FiO2 01/08/19 08:22 69 119/47 01/08/19 06:09 98.2 16 96 01/05/19 16:33 Room Air I&O Intake and Output 01/08/19 07:00 Intake Total 1200 ml Balance 1200 ml Intake Oral 1200 ml Current Medications: Meds: Current Medications Acetaminophen (Tylenol) 650 mg PRN Q6HRS PRN PO PAIN / TEMP Last administered on 12/30/18 14:14; Start 12/23/18 at 05:30; Stop 01/08/19 at 15:19; Status DC Multi-Ingredient Ointment (Analgesic [place]) 1 patricia PRN QID PRN TP MUSCLE PAIN Last administered on 12/28/18 06:47; Start 12/23/18 at 05:30; Stop 01/08/19 at 15 :19; Status DC Al Hydroxide/Mg Hydroxide (Mylanta Plus Xs) 15 ml PRN AFTMEALHC PRN PO DYSPEPSIA; Start 12/23/18 at 05:30; Stop 01/08/19 at 15:19; Status DC Magnesium Hydroxide (Milk Of Magnesia) 2,400 mg PRN QHS PRN PO CONSTIPATION; Start 12/23/18 at 05:30; Stop 01/08/19 at 15:19; Status DC Diphenhydramine HCl (Benadryl) 25 mg PRN QHS PRN PO INSOMNIA Last administered on 01/06/19at 19:49; Start 12/23/18 at 05:30; Stop 01/08/19 at 15:19; Status DC Lorazepam (Ativan) 1 mg PRN TID PRN PO ANXIETY / AGITATION Last administered on 12/24/18 23:47; Start 12/23/18 at 05:30; Stop 01/08/19 at 15:19; Status DC Citalopram Hydrobromide (CeleXA) 40 mg DAILY PO Last administered on 12/24/18 07:53; Start 12/23/18 at 09:00; Stop 12/24/18 at 19:07; Status DC Acetaminophen/ Hydrocodone Bitart (Lortab 7.5/325) 1 tab PRN QID PRN PO PAIN Last administered on 01/06/19 19:49; Start 12/23/18 at 05:30; Stop 01/08/19 at 15:19; Status DC Aspirin (Children'S Aspirin) 81 mg DAILYWBKFT PO Last administered on 08:21; Start 12/23/18 at 08:00; Stop 01/08/19 at 15:19; Status DC Atorvastatin Calcium (Lipitor) 40 mg QHS PO Last administered on 01/07/19at 19: 15; Start 12/23/18 at 21:00; Stop 01/08/19 at 15:19; Status DC Atenolol (Tenormin) 100 mg DAILY PO Last administered on 01/08/19 08:21; Start 12/23/18 at 09:00; Stop 01/08/19 at 15:19; Status DC Lisinopril (Prinivil) 30 mg DAILY PO Last administered on 12/23/18 07:40; Start 12/23/18 at 09:00; Stop 12/23/18 at 13:46; Status DC Pantoprazole Sodium (Protonix) 40 mg DAILYAC PO Last administered on 01/08/19 08:21; Start 12/23/18 at 07:30; Stop 01/08/19 at 15:19; Status DC Olanzapine (ZyPREXA ZYDIS) 2.5 mg PRN Q2HR PRN PO PSYCHOSIS Last administered on 12/23/18 06:34; Start 12/23/18 at 05:30; Stop 01/08/19 at 15:19; Status DC Lisinopril (Prinivil) 40 mg DAILY PO Last administered on 01/01/19at 08:12; Start 12/24/18 at 09:00; Stop 01/01/19 at 14:27; Status DC Nifedipine (Procardia Xl) 30 mg BID PO Last administered on 01/01/19at 08:08; Start 12/23/18 at 21:00; Stop 01/01/19 at 14:27; Status DC Haloperidol (Haldol) 2 mg QHS PO ; Start 12/23/18 at 21:00; Stop 12/23/18 at 21:00 ; Status DC Haloperidol (Haldol) 2 mg QHS PO ; Start 12/23/18 at 21:00; Stop 12/23/18 at 21:00 ; Status DC Haloperidol Lactate (HALDOL 0.5mg ORAL CONC) 2 mg QHS PO Last administered on 20:54; Start 12/23/18 at 21:00; Stop 12/24/18 at 16:22; Status DC Haloperidol Lactate (HALDOL 0.5mg ORAL CONC) 2 mg QHS PO Last administered on 20:16; Start 12/24/18 at 21:00; Stop 12/28/18 at 20:36; Status DC Duloxetine HCl (Cymbalta) 30 mg DAILY PO Last administered on 01/08/19 08:20; Start 12/25/18 at 09:00; Stop 01/08/19 at 15:19; Status DC Trazodone HCl (Desyrel) 50 mg PRN QHS PRN PO INSOMNIA, MAY REPEAT X1 Last administered on 12/29/18 23:47; Start 12/25/18 at 16:30; Stop 12/30/18 at 19:53; Status DC Throat Lozenges (Cepacol Sore Throat Lozenge) 1 justa PRN Q2HR PRN PO SORE THROAT Last administered on 01/01/19 19:22; Start 12/26/18 at 20:45; Stop at 15:19; Status DC Lidocaine (Lidoderm) 1 patch DAILY TD Last administered on 01/08/19 08:24; Start 12/28/18 at 15:00; Stop 01/08/19 at 15:19; Status DC Miscellaneous (Lidoderm Patch Removal) 1 ea QHS MC Last administered on 19:15; Start 12/28/18 at 21:00; Stop 01/08/19 at 15:19; Status DC Haloperidol Lactate (HALDOL 10mg ORAL CONC) 2 mg QHS PO Last administered on 20:04; Start 12/28/18 at 21:00; Stop 12/31/18 at 23:36; Status DC Lidocaine (Lidoderm) 1 patch DAILY TD Last administered on 01/08/19at 08:24; Start 12/31/18 at 09:00; Stop 01/08/19 at 15:19; Status DC Miscellaneous (Lidoderm Patch Removal) 1 ea QHS MC Last administered on at 19:15; Start 12/30/18 at 21:00; Stop 01/08/19 at 15:19; Status DC Trazodone HCl (Desyrel) 100 mg QHS PO Last administered on 01/07/19at 19:15; Start 12/30/18 at 21:00; Stop 01/08/19 at 15:19; Status DC Trazodone HCl (Desyrel) 100 mg PRN QHS PRN PO INSOMNIA Last administered on at 22:41; Start 12/30/18 at 20:00; Stop 01/08/19 at 15:19; Status DC Haloperidol Lactate (HALDOL 10mg ORAL CONC) 3 mg QHS PO Last administered on at 19:16; Start 01/01/19 at 21:00; Stop 01/08/19 at 15:19; Status DC Multi-Ingred Cream/Lotion/Oil/ Oint (Hydrocerin) 1 patricia PRN Q1HR PRN TP DRY SKIN / SCALING; Start 01/01/19 at 09:45; Stop 01/08/19 at 15:19; Status DC Lisinopril (Prinivil) 20 mg DAILY PO Last administered on 01/08/19at 08:22; Start 01/02/19 at 09:00; Stop 01/08/19 at 15:19; Status DC Vitamin D (Vitamin D3) 50,000 unit WEEKLY PO Last administered on 01/06/19at 08: 15; Start 01/06/19 at 09:00; Stop 01/08/19 at 15:19; Status DC Active Scripts Active Reported Eucerin Intensive Repair Crm (Glycerin/Lanolin/Mineral Oil) 113 Gm Cream..g. 1 Patricia TP PRN Q1HR Trazodone Hcl 100 Mg Tablet 100 Mg PO PRN QHS PRN Trazodone Hcl 100 Mg Tablet 100 Mg PO HS [[Patch Removal]] 1 Ea MC QHS [[Patch Removal]] 1 Each MC QHS Zyprexa Zydis (Olanzapine) 5 Mg Tab.rapdis 2.5 Mg PO PRN Q2HR PRN Analgesic [place] (Methyl Salicylate/Menthol) 28 Gm Oint...g. 1 Patricia TP PRN QID PRN Milk Of Magnesia (Magnesium Hydroxide) 2,400 Mg/10 Ml Oral.susp 2,400 Mg PO PRN QHS PRN Advanced Antacid Liquid (Mag Hydrox/Al Hydrox/Simeth) 355 Ml Oral.susp 15 Ml PO PRN AFTMEALHC PRN Lisinopril 20 Mg Tablet 20 Mg PO DAILY Lidocaine 1 Each Adh..patch 1 Patch TD DAILY Lidocaine 1 Each Adh..patch 1 Patch TD DAILY Haloperidol 2 Mg Tablet 3 Mg PO HS Cymbalta (Duloxetine Hcl) 30 Mg Capsule.dr 30 Mg PO DAILY D3-50 (Cholecalciferol (Vitamin D3)) 50,000 Unit Capsule 50,000 Unit PO QSA Cepacol Sore Throat Lozenge (Benzocaine/Menthol) 1 Each Lozenge 1 Justa MM PRN Q2HR PRN Acetaminophen 325 Mg Tablet 650 Mg PO PRN Q6HRS PRN Pantoprazole Sodium 40 Mg Tablet.dr 40 Mg PO DAILY Ativan (Lorazepam) 1 Mg Tablet 1 Mg PO PRN TID PRN Diphenhydramine Hcl 25 Mg Capsule 25 Mg PO HS PRN Bisoprolol Fumarate 10 Mg Tablet 10 Mg PO DAILY Atorvastatin Calcium 40 Mg Tablet 40 Mg PO HS Aspirin 81 Mg Tab.chew 81 Mg PO DAILY Hydrocodone-Apap 7.5-325 (Hydrocodone Bit/Acetaminophen) 1 Each Tablet 1 Tab PO PRN QID PRN I have reviewed the current psychotropics carefully including drug interactions. Risk benefit ratio favors no change other than as noted in my dictated progress note. Diagnosis: Problems: (1) Anxiety disorder (2) Alcoholic psychosis (3) Psychosis, atypical (4) Psychotic depression KATIE MOTA MD Jan 08, 2019 22:18
--- NOTE | 2019-01-09 17:52 | DS ---
DATE OF DISCHARGE: 01/08/2019 PSYCHIATRIC PROGRESS NOTE This late entry 01/08/2019, covers elements not covered in my initial note. REASON FOR ADMISSION: Please refer to the admission history for details. Briefly, the patient is an 83-year-old male referred from home via the Emergency Room on account of increased agitation, anxiety with suicidal ideation after he was found looking down the barrel of his gun by his . The family took and secured the guns. He was having auditory and visual hallucinations; paranoid, impulsive, having anger, irritability. SIGNIFICANT FINDINGS AND CLINICAL COURSE: Following admission, the patient was seen daily individually by myself from a psychiatric standpoint, medical followup with Dr. Gutierrez. He is quite depressed, withdrawn and paranoid, psychotic. He responded positively to Haldol in the past and we initiated this at 2 mg at bedtime, increasing later to 3 mg at bedtime and he was started on Cymbalta 30 mg a day. He is also on Zyprexa p.r.n., Ativan p.r.n.; trazodone 100 mg at bedtime, march repeat x 1 for insomnia. Gradually mood appeared to improve. He denied suicidal ideation, was verbal and interactive. REVIEW OF SYSTEMS: No CV, , pulmonary, eye, ENT system symptoms on review. MENTAL STATUS EXAM: Oriented reasonably. Speech is coherent, has some latency. Abstraction fair, computation is impaired, language function intact. Mood and affect is improved. FINAL DIAGNOSES: Major depressive disorder, recurrent, severe with psychotic features; anxiety disorder, unspecified; impulse control disorder, unspecified; cognitive disorder, unspecified. Rest unchanged from admission. DISCHARGE MEDICATIONS: Please refer to the MRAD. DISCHARGE INSTRUCTIONS: Outpatient psychiatric followup at [facility] in [place] for psychotropic medication management and psychotherapy and medical followup with his primary care physician. Time for discharge day management is greater than 30 minutes. MAN Sheng MOTA MD DR: SPRING/pb JOB#: [id number] / [id number]
--- NOTE | 2019-01-09 20:16 | PN ---
DATE: 01/07/2019 PSYCHIATRIC PROGRESS NOTE This late entry 01/07/2019 covers elements not covered in my initial note. SUBJECTIVE: I met with the patient in the evening. The patient slept 5 hours previous night. Overall, the patient has been fairly cooperative on the unit, somewhat withdrawn. During the individual visit, I discussed discharge plans for 01/08/2019 at length with him including the fact that his should keep his psychotropics and follow up at the [facility]. REVIEW OF SYSTEMS: No CV, , pulmonary, eye, ENT system symptoms on review. MENTAL STATUS EXAM: Reasonably oriented. Speech is coherent, has some latency. Abstraction fair, computation impaired, language function intact. Mood and affect still withdrawn, but improved. No suicidal ideation. LABORATORY DATA: Reviewed. IMPRESSION: Unchanged from initial note. PLAN: No change from initial note, possible discharge 01/08/2019. MAN Sheng MOTA MD DR: SPRING/pb JOB#: [id number] / [id number]
== END 2019-01-08 13:00 | disposition home or self-care (01) | DRG 885 ==
LOC: GEROPSY 04:52
PROVIDERS: ADMIT Psychiatry & Neurology Psychiatry; ATTEND Psychiatry & Neurology Psychiatry
DX: F33.3 Major depressive disorder, recurrent, severe with psychotic symptoms (principal); R45.851 Suicidal ideations; F41.9 Anxiety disorder, unspecified; F03.90 Unspecified dementia, unspecified severity, without behavioral disturbance, psychotic disturbance, mood disturbance, and anxiety; I25.10 Atherosclerotic heart disease of native coronary artery without angina pectoris; E78.5 Hyperlipidemia, unspecified; F09 Unspecified mental disorder due to known physiological condition; F63.9 Impulse disorder, unspecified; G47.00 Insomnia, unspecified; G89.29 Other chronic pain; I10 Essential (primary) hypertension; Z95.2 Presence of prosthetic heart valve; Z87.891 Personal history of nicotine dependence; Z87.828 Personal history of other (healed) physical injury and trauma; Z79.899 Other long term (current) drug therapy
CPT/HCPCS: 36415; 76770; 80053; 80061; 82306; 83036; 83540; 83550; 83735; 84436; 84443; 84480; 85025; 86592; 93005; Q0163; 97110; 97116; 97530